=== PATIENT | female | born 1985 | race Caucasian/White ===

== ENCOUNTER 2016-05-25 18:13 | Emergency (ER) | payer MEDICAID ==
[2016-05-25] MEDS ORDERED: HYDROCODONE/ACETAMINOPHEN 5-325 MG TABLET PO ONE (18:52)
--- NOTE | 2016-05-25 18:52 | ER Document Report ---
ED Medical Screen (RME) - General Stated Complaint: TOOTH PAIN Time seen by provider: 18:48 Mode of Arrival: Ambulatory Information source: Patient TRAVEL OUTSIDE OF THE [place] IN LAST 30 DAYS: No - HPI Patient complains to provider of: DENTAL PAIN Onset: Other - 2-3 WEEKS, WORSE LAST 3 DAYS Onset/Duration: Gradual Quality of pain: Throbbing Severity: Moderate Pain Level: 4 Associated Symptoms: None Exacerbated by: Food Relieved by: Denies Similar symptoms previously: Yes Recently seen / treated by doctor: No - HAS APPT 1 1/2 WEEKS - Related Data Smoking: Cigarettes Frequency of alcohol use: Rare Drug Abuse: None Allergies/Adverse Reactions: paroxetine HCl [From Paxil] Allergy (Intermediate, Verified 02/22/16 09:16) sumatriptan [From Imitrex] Adverse Reaction (Unknown, Verified 02/22/16 09:16) sumatriptan succinate [From Imitrex] Adverse Reaction (Unknown, Verified 09:16) Past Medical History - Past Medical History Cardiac Medical History: Denies: Hx Coronary Artery Disease, Hx Heart Attack, Hx Hypertension Pulmonary Medical History: Reports: Hx Bronchitis Denies: Hx Asthma, Hx COPD, Hx Pneumonia Neurological Medical History: Reports: Hx Migraine. Denies: Hx Cerebrovascular Accident, Hx Seizures Renal/ Medical History: Reports: Hx Ovarian Cysts Musculoskeltal Medical History: Reports Hx Arthritis - hips and knees roro. Skin Medical History: Denies Hx MRSA Psychiatric Medical History: Reports: Hx Attention Deficit Hyperactivity Disorder, Hx Depression Traumatic Medical History: Reports: Hx Fractures Past Surgical History: Reports: Hx Bowel Surgery - hemmorhoids, Hx Gynecologic Surgery - Mirena IUD, Hx Hysterectomy - partial, Hx Oral Surgery - wisdom, Hx Tubal Ligation. Denies: Hx Pacemaker - Immunizations Immunizations up to date: Yes Hx Diphtheria, Pertussis, Tetanus Vaccination: Yes Physical Exam - Vital signs Vitals: Temp Pulse Resp BP Pulse Ox 98.1 F 101 H 16 122/78 99 05/25/16 18:23 05/25/16 18:23 05/25/16 18:23 05/25/16 18:23 05/25/16 18:23 Course - Vital Signs Vital signs: Temp Pulse Resp BP Pulse Ox 98.1 F 101 H 16 122/78 99 05/25/16 18:23 05/25/16 18:23 05/25/16 18:23 05/25/16 18:23 05/25/16 18:23
[2016-05-25] MEDS ORDERED: HYDROCODONE/ACETAMINOPHEN 5-325 MG 6 TAB/DSPK PO PRN (20:08)
[2016-05-25] MEDS ORDERED: PENICILLIN V POTASSIUM 500 MG TABLET PO ONE (20:08)
--- NOTE | 2016-05-25 20:14 | ER Document Report ---
HPI - HPI Patient complains to provider of: tooth pain Pain Level: 4 Context: Patient is a 30-year-old female that comes emergency department for chief complaint of tooth pain, worsening over the past several days, she states that she has made an appointment with the dentist but they cannot see her until next . Patient states pain radiates up towards her right ear. She denies throat pain, neck pain, fever. - CONSTITUTIONAL Constitutional: DENIES: Fever, Chills - EENT EENT: DENIES: Sore Throat, Ear Pain, Nasal Drainage-Clear, Nasal Drainage- Purulent, Congestion, Eye problems - NEURO Neurology: DENIES: Headache, Weakness, Vision blurred, Dizzinesss / Vertigo - CARDIOVASCULAR Cardiovascular: DENIES: Chest pain - RESPIRATORY Respiratory: DENIES: Trouble Breathing, Coughing - GASTROINTESTINAL Gastrointestinal: DENIES: Abdominal Pain, Nausea, Patient vomiting, Diarrhea, Constipation, Black / Bloody Stools - URINARY Urinary: DENIES: Dysuria, Urgency, Frequency - REPRODUCTIVE LMP: n/a Reproductive: DENIES: :, Postmenopausal, Abnormal bleeding / discharge - MUSCULOSKELETAL Musculoskeletal: DENIES: Extremity pain, Back Pain, Neck Pain, Swelling - DERM Skin Color: Normal Skin Problems: None - NURSING COMMENTS Comment: received pt to room 44. pt is alert and oriented. ambulatory with steady gait. states she has tooth pain to teeth on the top and bottom right jaw. states increase in pain over the p;ast 2-3 weeks. states she does have an appt with the dentis but not until 1.5 week. Past Medical History - General Information source: Patient - Social History Smoking Status: Current Every Day Smoker Cigarette use (# per day): No Chew tobacco use (# tins/day): No Frequency of alcohol use: None Drug Abuse: None Family History: Reviewed & Not Pertinent Patient has suicidal ideation: No Patient has homicidal ideation: No - Past Medical History Cardiac Medical History: Denies: Hx Coronary Artery Disease, Hx Heart Attack, Hx Hypertension Pulmonary Medical History: Reports: Hx Bronchitis Denies: Hx Asthma, Hx COPD, Hx Pneumonia Neurological Medical History: Reports: Hx Migraine. Denies: Hx Cerebrovascular Accident, Hx Seizures Renal/ Medical History: Reports: Hx Ovarian Cysts. Denies: Hx Peritoneal Dialysis Musculoskeltal Medical History: Reports Hx Arthritis - hips and knees roro. Skin Medical History: Denies Hx MRSA Psychiatric Medical History: Reports: Hx Attention Deficit Hyperactivity Disorder, Hx Depression Traumatic Medical History: Reports: Hx Fractures Past Surgical History: Reports: Hx Bowel Surgery - hemmorhoids, Hx Gynecologic Surgery - Mirena IUD, Hx Hysterectomy, Hx Oral Surgery - wisdom, Hx Tubal Ligation. Denies: Hx Pacemaker - Immunizations Immunizations up to date: Yes Hx Diphtheria, Pertussis, Tetanus Vaccination: Yes Vertical Provider Document - CONSTITUTIONAL General Appearance: Mild Distress - Patient holding her right jaw, Thin - INFECTION CONTROL TRAVEL OUTSIDE OF THE [place] IN LAST 30 DAYS: No - HEENT HEENT: Atraumatic, Normal ENT Exam, Normocephalic. negative: Pharyngeal Exudate , Pharyngeal Tenderness, Pharyngeal Erythema Mouth Diagram: 1 - Tenderness, very mild erythema to the gumline, questionable broken tooth in the posterior aspect, no abscess or other abnormalities noted - NECK Neck: Normal Inspection, Supple. negative: Lymphadenopathy-Left, Lymphadenopathy-Right - RESPIRATORY Respiratory: Breath Sounds Normal, No Respiratory Distress O2 Sat by Pulse Oximetry: 99 - CARDIOVASCULAR Cardiovascular: Regular Rate, Regular Rhythm - GI/ABDOMEN Gastrointestinal: Abdomen Soft, Abdomen Non-Tender - MUSCULOSKELETAL/EXTREMETIES Musculoskeletal/Extremeties: MAEW, FROM, Non-Tender - NEURO Level of Consciousness: Awake, Alert, Appropriate - DERM Integumentary: Warm, Dry, No Rash Course - Vital Signs Vital signs: Temp Pulse Resp BP Pulse Ox 98.1 F 101 H 16 122/78 99 05/25/16 18:23 05/25/16 18:23 05/25/16 18:23 05/25/16 18:23 05/25/16 18:23 Discharge - Discharge Clinical Impression: Pain, dental Condition: Stable Disposition: HOME, SELF-CARE Additional Instructions: Take medications as prescribed, follow up with the dentist for treatment. Return to emergency department for any concerning or worsening symptoms including swelling, difficulty swallowing, fever, etc. Prescriptions: Ibuprofen 800 mg PO Q8 #30 tablet Oxycodone HCl/Acetaminophen [Percocet 5-325 mg Tablet] 1 - 2 tab PO Q4H PRN #8 tablet PRN Reason: Penicillin V Potassium [Penicillin Vk 500 mg Tablet] 500 mg PO BID #20 tablet Referrals: COREY CRONIN MD, MD [Primary Care Provider] - Follow up as needed
[2016-05-25 20:49] VITALS: BP 110/73
== END 2016-05-25 20:36 | disposition home or self-care (01) ==
LOC: ER 18:13
DX: K08.89 Other specified disorders of teeth and supporting structures (principal); F17.200 Nicotine dependence, unspecified, uncomplicated
CPT/HCPCS: 99282; J3490

== ENCOUNTER 2016-05-28 09:31 | Emergency (ER) | payer MEDICAID ==
--- NOTE | 2016-05-28 10:47 | ER Document Report ---
HPI - HPI Patient complains to provider of: dental pain Onset: Last week Onset/Duration: Persistent Quality of pain: Sharp Pain Level: 4 Context: Patient complains of dental pain for the past week. Patient was here on 2016 and given pain medication as well as antibiotics. Patient is waiting for her appointment on 06/07/2016. Patient denies any fever or facial swelling. Associated Symptoms: Other - Dental pain. denies: Earache, Fever Exacerbated by: Denies Relieved by: Denies Similar symptoms previously: Yes Recently seen / treated by doctor: Yes - ROS ROS below otherwise negative: Yes Systems Reviewed and Negative: Yes All other systems reviewed and negative - CONSTITUTIONAL Constitutional: DENIES: Fever, Chills - EENT EENT: DENIES: Sore Throat Notes: Dental pain - RESPIRATORY Respiratory: DENIES: Trouble Breathing, Coughing - GASTROINTESTINAL Gastrointestinal: DENIES: Nausea, Patient vomiting - REPRODUCTIVE Reproductive: DENIES: : - MUSCULOSKELETAL Musculoskeletal: DENIES: Back Pain, Neck Pain - DERM Skin Color: Normal Skin Problems: None Past Medical History - General Information source: Patient - Social History Smoking Status: Current Every Day Smoker Chew tobacco use (# tins/day): No Frequency of alcohol use: None Drug Abuse: None Occupation: cleaning Family History: Reviewed & Not Pertinent Patient has suicidal ideation: No Patient has homicidal ideation: No - Past Medical History Cardiac Medical History: Denies: Hx Coronary Artery Disease, Hx Heart Attack, Hx Hypertension Pulmonary Medical History: Reports: Hx Bronchitis Denies: Hx Asthma, Hx COPD, Hx Pneumonia Neurological Medical History: Reports: Hx Migraine. Denies: Hx Cerebrovascular Accident, Hx Seizures Renal/ Medical History: Reports: Hx Ovarian Cysts. Denies: Hx Peritoneal Dialysis Musculoskeltal Medical History: Reports Hx Arthritis - hips and knees roro. Skin Medical History: Denies Hx MRSA Psychiatric Medical History: Reports: Hx Attention Deficit Hyperactivity Disorder, Hx Depression Traumatic Medical History: Reports: Hx Fractures Past Surgical History: Reports: Hx Bowel Surgery - hemmorhoids, Hx Gynecologic Surgery - Mirena IUD, Hx Hysterectomy, Hx Oral Surgery - wisdom, Hx Tubal Ligation. Denies: Hx Pacemaker - Immunizations Immunizations up to date: Yes Hx Diphtheria, Pertussis, Tetanus Vaccination: Yes Vertical Provider Document - CONSTITUTIONAL Agree With Documented VS: Yes Exam Limitations: No Limitations General Appearance: WD/WN, No Apparent Distress - INFECTION CONTROL TRAVEL OUTSIDE OF THE [place] IN LAST 30 DAYS: No - HEENT HEENT: Atraumatic, Normocephalic Mouth Diagram: 1 - Tenderness, no obvious decay, no gingival swelling, no trismus. - NECK Neck: Normal Inspection, Supple. negative: Lymphadenopathy-Left, Lymphadenopathy-Right - RESPIRATORY Respiratory: Breath Sounds Normal, No Respiratory Distress, Chest Non-Tender O2 Sat by Pulse Oximetry: 97 - CARDIOVASCULAR Cardiovascular: Regular Rate, Regular Rhythm, No Murmur - BACK Back: Normal Inspection - MUSCULOSKELETAL/EXTREMETIES Musculoskeletal/Extremeties: MAEW - NEURO Level of Consciousness: Awake, Alert, Appropriate Motor/Sensory: No Motor Deficit - DERM Integumentary: Warm, Dry, No Rash Course - Re-evaluation Re-evalutation: 05/28/16 Patient states that tramadol does not manage her pain symptoms and is requesting a refill of narcotic pain medication. Patient advised that emergency department does not refill narcotic medications and that she will need to see your her primary doctor or her dental provider for any additional pain medication. - Vital Signs Vital signs: Temp Pulse Resp BP Pulse Ox 98.3 F 16 L 98 H 118/68 97 05/28/16 09:36 05/28/16 09:36 05/28/16 09:36 05/28/16 09:36 05/28/16 09:36 Discharge - Discharge Clinical Impression: Pain, dental Condition: Stable Disposition: HOME, SELF-CARE Instructions: Toothache ([facility]), Ultram ([facility]) Additional Instructions: Return immediately for any new or worsening symptoms Followup with your primary care provider, call tomorrow to make a followup appointment Continue to take your antibiotics as previously prescribed Follow-up with your dental care provider as planned Prescriptions: Tramadol HCl [Ultram 50 mg Tablet] 50 mg PO ASDIR PRN #20 tablet PRN Reason: Referrals: COREY CRONIN MD, MD [Primary Care Provider] - Follow up as needed
[2016-05-28 11:08] VITALS: BP 114/68
== END 2016-05-28 10:55 | disposition home or self-care (01) ==
LOC: ER 09:31
DX: K08.89 Other specified disorders of teeth and supporting structures (principal); F17.210 Nicotine dependence, cigarettes, uncomplicated
CPT/HCPCS: 99282

== ENCOUNTER 2016-07-13 10:10 | Emergency (ER) | payer MEDICAID ==
[2016-07-13 10:14] VITALS: BP 117/77
--- NOTE | 2016-07-13 10:17 | ER Document Report ---
ED Medical Screen (RME) - General Stated Complaint: LEFT BREAST PAIN Notes: Patient reports left breast pain and swelling for about 3 weeks. Warm to touch last night. Patient reports drainage from left nipple. Patient states she has had similar symptoms in the past, but not as bad. I have greeted and performed a rapid initial assessment of this patient. A comprehensive ED assessment and evaluation of the patient, analysis of test results and completion of the medical decision making process will be conducted by additional ED providers. TRAVEL OUTSIDE OF THE [place] IN LAST 30 DAYS: No - Related Data Allergies/Adverse Reactions: paroxetine HCl [From Paxil] Allergy (Intermediate, Verified 05/28/16 09:36) sumatriptan [From Imitrex] Adverse Reaction (Unknown, Verified 05/28/16 09:36) sumatriptan succinate [From Imitrex] Adverse Reaction (Unknown, Verified 09:36) Past Medical History - Past Medical History Cardiac Medical History: Denies: Hx Coronary Artery Disease, Hx Heart Attack, Hx Hypertension Pulmonary Medical History: Reports: Hx Bronchitis Denies: Hx Asthma, Hx COPD, Hx Pneumonia Neurological Medical History: Reports: Hx Migraine. Denies: Hx Cerebrovascular Accident, Hx Seizures Renal/ Medical History: Reports: Hx Ovarian Cysts. Denies: Hx Peritoneal Dialysis Musculoskeltal Medical History: Reports Hx Arthritis - hips and knees roro. Skin Medical History: Denies Hx MRSA Psychiatric Medical History: Reports: Hx Attention Deficit Hyperactivity Disorder, Hx Depression Traumatic Medical History: Reports: Hx Fractures Past Surgical History: Reports: Hx Bowel Surgery - hemmorhoids, Hx Gynecologic Surgery - Mirena IUD, Hx Hysterectomy, Hx Oral Surgery - wisdom, Hx Tubal Ligation. Denies: Hx Pacemaker - Immunizations Immunizations up to date: Yes Hx Diphtheria, Pertussis, Tetanus Vaccination: Yes Physical Exam - Vital signs Vitals: Temp Pulse Resp BP Pulse Ox 98.5 F 73 16 117/77 99 07/13/16 10:13 07/13/16 10:13 07/13/16 10:13 07/13/16 10:13 07/13/16 10:13 - General General appearance: Appears well, Alert In distress: None Course - Vital Signs Vital signs: Temp Pulse Resp BP Pulse Ox 98.5 F 73 16 117/77 99 07/13/16 10:13 07/13/16 10:13 07/13/16 10:13 07/13/16 10:13 07/13/16 10:13
== END 2016-07-13 10:30 | disposition left against medical advice (07) ==
LOC: ER 10:10
DX: Z53.9 Procedure and treatment not carried out, unspecified reason (principal); N64.4 Mastodynia
CPT/HCPCS: 99281; 99283

== ENCOUNTER 2016-07-13 11:01 | Emergency (ER) | payer MEDICAID ==
--- NOTE | 2016-07-13 11:04 | ER Document Report ---
ED Medical Screen (RME) - General Stated Complaint: breast pain Notes: Patient reports left breast pain and swelling for about 3 weeks. Warm to touch last night. Patient reports drainage from left nipple. Patient states she has had similar symptoms in the past, but not as bad. I have greeted and performed a rapid initial assessment of this patient. A comprehensive ED assessment and evaluation of the patient, analysis of test results and completion of the medical decision making process will be conducted by additional ED providers. TRAVEL OUTSIDE OF THE [place] IN LAST 30 DAYS: No - Related Data Allergies/Adverse Reactions: paroxetine HCl [From Paxil] Allergy (Intermediate, Verified 07/13/16 11:06) sumatriptan [From Imitrex] Adverse Reaction (Unknown, Verified 07/13/16 11:06) sumatriptan succinate [From Imitrex] Adverse Reaction (Unknown, Verified 11:06) Past Medical History - Past Medical History Cardiac Medical History: Denies: Hx Coronary Artery Disease, Hx Heart Attack, Hx Hypertension Pulmonary Medical History: Reports: Hx Bronchitis Denies: Hx Asthma, Hx COPD, Hx Pneumonia Neurological Medical History: Reports: Hx Migraine. Denies: Hx Cerebrovascular Accident, Hx Seizures Renal/ Medical History: Reports: Hx Ovarian Cysts. Denies: Hx Peritoneal Dialysis Musculoskeltal Medical History: Reports Hx Arthritis - hips and knees roro. Skin Medical History: Denies Hx MRSA Psychiatric Medical History: Reports: Hx Attention Deficit Hyperactivity Disorder, Hx Depression Traumatic Medical History: Reports: Hx Fractures Past Surgical History: Reports: Hx Bowel Surgery - hemmorhoids, Hx Gynecologic Surgery - Mirena IUD, Hx Hysterectomy, Hx Oral Surgery - wisdom, Hx Tubal Ligation. Denies: Hx Pacemaker - Immunizations Immunizations up to date: Yes Hx Diphtheria, Pertussis, Tetanus Vaccination: Yes Physical Exam - Vital signs Vitals: Temp Pulse Resp BP Pulse Ox 98.3 F 74 14 124/85 99 07/13/16 11:04 07/13/16 11:04 07/13/16 11:04 07/13/16 11:04 07/13/16 11:04 - General General appearance: Appears well, Alert In distress: None Course - Vital Signs Vital signs: Temp Pulse Resp BP Pulse Ox 98.3 F 74 14 124/85 99 07/13/16 11:04 07/13/16 11:04 07/13/16 11:04 07/13/16 11:04 07/13/16 11:04
--- NOTE | 2016-07-13 12:28 | ER Document Report ---
HPI - HPI Patient complains to provider of: left breat pain and swelling Onset: Other - 3 weeks Quality of pain: Throbbing Pain Level: 3 Context: 30 yo non breatfeeding female c/o recurrent swelling to left lateral quadrant for 3 weeks. Similar in past and was told it was fibrocystic disease. No US done or mmmogram. No nipple manipulation, no discharge. No fever or chills. Associated Symptoms: None Exacerbated by: Denies Relieved by: Denies Similar symptoms previously: Yes Recently seen / treated by doctor: No - ROS ROS below otherwise negative: Yes Systems Reviewed and Negative: Yes All other systems reviewed and negative - REPRODUCTIVE Reproductive: DENIES: : - DERM Skin Color: Normal Past Medical History - General Information source: Patient - Social History Smoking Status: Current Every Day Smoker Chew tobacco use (# tins/day): No Frequency of alcohol use: None Drug Abuse: None Lives with: Family Family History: Reviewed & Not Pertinent Patient has suicidal ideation: No Patient has homicidal ideation: No Pulmonary Medical History: Reports: Hx Bronchitis Neurological Medical History: Reports: Hx Migraine Renal/ Medical History: Reports: Hx Ovarian Cysts Musculoskeltal Medical History: Reports Hx Arthritis - hips and knees roro. Psychiatric Medical History: Reports: Hx Attention Deficit Hyperactivity Disorder, Hx Depression Traumatic Medical History: Reports: Hx Fractures Past Surgical History: Reports: Hx Bowel Surgery - hemmorhoids, Hx Gynecologic Surgery - Mirena IUD, Hx Hysterectomy, Hx Oral Surgery - wisdom, Hx Tubal Ligation. Denies: Hx Pacemaker - Immunizations Immunizations up to date: Yes Hx Diphtheria, Pertussis, Tetanus Vaccination: Yes Vertical Provider Document - CONSTITUTIONAL Agree With Documented VS: Yes Exam Limitations: No Limitations General Appearance: No Apparent Distress - INFECTION CONTROL TRAVEL OUTSIDE OF THE [place] IN LAST 30 DAYS: No - HEENT HEENT: Normal ENT Exam - NECK Neck: Supple - RESPIRATORY Respiratory: Breath Sounds Normal, No Respiratory Distress O2 Sat by Pulse Oximetry: 99 Notes: left lateral and upper outer breast tissue more dense than the left. No discrete mass, not red or warm. No adenopathy. - CARDIOVASCULAR Cardiovascular: Regular Rate, Regular Rhythm - MUSCULOSKELETAL/EXTREMETIES Musculoskeletal/Extremeties: MAEW, FROM - NEURO Level of Consciousness: Awake, Alert - DERM Integumentary: Warm, Dry, No Rash Course - Vital Signs Vital signs: Temp Pulse Resp BP Pulse Ox 98.3 F 74 14 124/85 99 07/13/16 11:04 07/13/16 11:04 07/13/16 11:04 07/13/16 11:04 07/13/16 11:04 Discharge - Discharge Clinical Impression: left mastodynia Condition: Good Disposition: HOME, SELF-CARE Instructions: Breast Self-Examination ([facility]), Breast Lumps ([facility]) Additional Instructions: Get the outpatient ultrasound and mammogram See Mayra Basilio your provider for follow-up Please complete the patient satisfaction survey if you get one, and return it.. If you do not receive a survey, then you can go to the [facility] website, [email or web address] and place your comments about your very good care. Thank you very much. It was a pleasure being your medical provider today. Forms: Follow-Up Radiology Testing Referrals: COREY CRONIN MD [Primary Care Provider] - Follow up in 3-5 days
[2016-07-13 13:04] VITALS: BP 121/82
== END 2016-07-13 13:04 | disposition home or self-care (01) ==
LOC: ER 11:01
DX: N64.4 Mastodynia (principal); N63 Unspecified lump in breast; F17.200 Nicotine dependence, unspecified, uncomplicated
CPT/HCPCS: 99283

== ENCOUNTER → 2016-07-26 | Outpatient (CLI) | payer MEDICAID | LOC: WI 10:20 | PROVIDERS: ATTEND Nurse Practitioner Family | DX: N64.4 Mastodynia (principal) | CPT/HCPCS: 76642; G0204; 77066 ==

== ENCOUNTER 2016-08-06 17:21 | Emergency (ER) | payer MEDICAID ==
[2016-08-06 17:26] VITALS: BP 138/73
[2016-08-06] MEDS ORDERED: HYDROCODONE/ACETAMINOPHEN 5-325 MG TABLET PO ONE (18:12)
--- NOTE | 2016-08-06 18:13 | ER Document Report ---
HPI - HPI Patient complains to provider of: dry socket Pain Level: 5 Context: patient had tooth #2 pulled three days ago, has received 10 vicodin from her dentist and presents here today with dry socket and looking for pain relief. She states she's been smoking since she had her teeth pulled. The fever, chills , foul drainage or odor. - REPRODUCTIVE Reproductive: DENIES: : - DERM Skin Color: Normal Past Medical History - Social History Smoking Status: Current Every Day Smoker Family History: Reviewed & Not Pertinent Patient has suicidal ideation: No Patient has homicidal ideation: No - Past Medical History Cardiac Medical History: Denies: Hx Coronary Artery Disease, Hx Heart Attack, Hx Hypertension Pulmonary Medical History: Reports: Hx Bronchitis Denies: Hx Asthma, Hx COPD, Hx Pneumonia Neurological Medical History: Reports: Hx Migraine. Denies: Hx Cerebrovascular Accident, Hx Seizures Renal/ Medical History: Reports: Hx Ovarian Cysts. Denies: Hx Peritoneal Dialysis Musculoskeltal Medical History: Reports Hx Arthritis - hips and knees roro. Skin Medical History: Denies Hx MRSA Psychiatric Medical History: Reports: Hx Attention Deficit Hyperactivity Disorder, Hx Depression Traumatic Medical History: Reports: Hx Fractures Past Surgical History: Reports: Hx Bowel Surgery - hemmorhoids, Hx Gynecologic Surgery - Mirena IUD, Hx Hysterectomy, Hx Oral Surgery - wisdom, Hx Tubal Ligation. Denies: Hx Pacemaker - Immunizations Immunizations up to date: Yes Hx Diphtheria, Pertussis, Tetanus Vaccination: Yes Vertical Provider Document - CONSTITUTIONAL Agree With Documented VS: Yes Exam Limitations: No Limitations General Appearance: WD/WN, No Apparent Distress - INFECTION CONTROL TRAVEL OUTSIDE OF THE [place] IN LAST 30 DAYS: No - HEENT HEENT: Atraumatic, Normocephalic, PERRLA Mouth Diagram: 1 - Dry socket. Notes: Uvula midline. Airway patent. No evidence of tonsillar enlargement, peritonsillar abscess, retropharyngeal abscess. - NECK Neck: Normal Inspection, Other - No evidence of Harry angina - RESPIRATORY Respiratory: Breath Sounds Normal, No Respiratory Distress, Chest Non-Tender. negative: Rales, Rhonchi, Wheezing O2 Sat by Pulse Oximetry: 97 - CARDIOVASCULAR Cardiovascular: Regular Rate, Regular Rhythm, No Murmur Course - Re-evaluation Re-evalutation: 08/06/16 19:11 Discussed with patient management of dry socket and can follow-up with dentist. - Vital Signs Vital signs: Temp Pulse Resp BP Pulse Ox 98.3 F 85 20 138/73 H 97 08/06/16 17:24 08/06/16 17:24 08/06/16 17:24 08/06/16 17:24 08/06/16 17:24 Discharge - Discharge Clinical Impression: Dry socket Condition: Good Disposition: HOME, SELF-CARE Additional Instructions: Follow up with your dentist on Tuesday or Tuesday Stop smoking You can buy [id number] [employer]abase. Place this on a cotton ball and pack the socket. You can also use BC powder for your pain Referrals: COREY CRONIN MD [Primary Care Provider] - Follow up as needed
== END 2016-08-06 18:37 | disposition home or self-care (01) ==
LOC: ER 17:21
DX: M27.3 Alveolitis of jaws (principal); F17.200 Nicotine dependence, unspecified, uncomplicated; Z97.5 Presence of (intrauterine) contraceptive device; Z90.710 Acquired absence of both cervix and uterus
CPT/HCPCS: 99282

== ENCOUNTER 2016-08-09 06:17 | Emergency (ER) | payer MEDICAID ==
[2016-08-09 06:27] VITALS: BP 133/90
[2016-08-09] MEDS ORDERED: PENICILLIN V POTASSIUM 500 MG TABLET PO ONE (06:47)
[2016-08-09] MEDS ORDERED: TRAMADOL HCL 50 MG TABLET PO ONE (06:47)
--- NOTE | 2016-08-09 06:53 | ER Document Report ---
ED Oral Problem - General Chief Complaint: Mouth Problem Stated Complaint: FACE PAIN AND SWELLING Mode of Arrival: Ambulatory Information source: Patient TRAVEL OUTSIDE OF THE [place] IN LAST 30 DAYS: No - HPI Patient complains to provider of: Swelling of face Notes: Patient arrives with complaints of right upper dental pain. She had a right upper first molar removed approximately one week ago. She was seen here a few days ago with dry socket pain after smoking. She do not appear to have any infection at that time. She arrives today because she complains of some swelling to the right cheek area and she is currently concerned she has an infection. She denies any fevers. She denies any difficulty breathing or swelling. No nausea, vomiting, diarrhea. No rash. She denies any numbness tingling or weakness. She has no other complaints at this time. In reviewing her chart, the patient has been seen in [facility] department quite often for dental pain. - Related Data Allergies/Adverse Reactions: paroxetine HCl [From Paxil] Allergy (Intermediate, Verified 08/09/16 06:21) sumatriptan [From Imitrex] Adverse Reaction (Unknown, Verified 08/09/16 06:21) sumatriptan succinate [From Imitrex] Adverse Reaction (Unknown, Verified 06:21) Past Medical History - Social History Smoking Status: Current Every Day Smoker Chew tobacco use (# tins/day): No Frequency of alcohol use: None Drug Abuse: None Family History: Reviewed & Not Pertinent - Past Medical History Cardiac Medical History: Denies: Hx Coronary Artery Disease, Hx Heart Attack, Hx Hypertension Pulmonary Medical History: Reports: Hx Bronchitis Denies: Hx Asthma, Hx COPD, Hx Pneumonia Neurological Medical History: Reports: Hx Migraine. Denies: Hx Cerebrovascular Accident, Hx Seizures Renal/ Medical History: Reports: Hx Ovarian Cysts. Denies: Hx Peritoneal Dialysis Musculoskeltal Medical History: Reports Hx Arthritis - bilateral hips and knees Skin Medical History: Denies Hx MRSA Psychiatric Medical History: Reports: Hx Attention Deficit Hyperactivity Disorder, Hx Depression Traumatic Medical History: Reports: Hx Fractures Past Surgical History: Reports: Hx Bowel Surgery - hemmorhoids, Hx Gynecologic Surgery - Mirena IUD, Hx Hysterectomy, Hx Oral Surgery - wisdom, Hx Tubal Ligation. Denies: Hx Pacemaker - Immunizations Immunizations up to date: Yes Hx Diphtheria, Pertussis, Tetanus Vaccination: Yes Review of Systems - Review of Systems -: Yes All other systems reviewed and negative Physical Exam - Vital signs Vitals: Temp Pulse Resp BP Pulse Ox 98.1 F 82 20 133/90 H 97 08/09/16 06:21 08/09/16 06:21 08/09/16 06:21 08/09/16 06:21 08/09/16 06:21 - Notes Notes: GENERAL: alert, cooperative, nontoxic, no distress. HEAD: normocephalic, atraumatic EYES: conjunctiva pink without discharge, no external redness or swelling. EARS: no external swelling, no external redness NOSE: atraumatic, no external swelling MOUTH/THROAT: mucous membranes moist and pink. Patient's noted to have a open area to the gum and tooth #3, her right upper first molar. There is no gum swelling identified. There is no drainage or abscess noted. She does have some very minimal puffiness to the right cheek area. There is no significant edema noted. No redness. She has no sign of Harry angina. No trismus or drooling. NECK: soft, supple, full range of motion, no meningismus. CHEST: no distress, lungs clear and equal throughout. No wheezing, rales, rhonchi. CARDIAC: regular rate and rhythm, no murmur, normal capillary refill, normal pulses. BACK: full range of motion, no CVA tenderness. EXTREMITIES: full range of motion of all extremities. No redness, no swelling. NEURO: alert and oriented 3, no focal deficits, full range of motion of all extremities. PYSCH: appropriate mood, affect. Patient is cooperative. SKIN: pink, warm, dry, no rash. Course - Re-evaluation Re-evalutation: 08/09/16 06:51 Patient is nontoxic. Stable vitals. The patient had these recent dental extraction to the right upper first molar. She was seen a few days ago for a dry socket. She returns today for some mild swelling to the right cheek. I will place her on antibiotics in case she has an early infection in this area. She'll be given a dose of pain medication here in the emergency department. She 'll be discharged home with pen OSCAR and Voltaren. She is instructed to follow- up with her dentist at the next available appointment. She states that the dentist is not open today, instructed she needs to follow up with them tomorrow. She is nontoxic-appearing with no distress. She is afebrile. She' ll be discharged home. The patient is noted to have elevated blood pressure during today's emergency department visit. The patient was informed of this finding. The patient was instructed that this may be related to pre-hypertension and requires further evaluation with a primary care provider. The patient has no hypertensive symptoms at this time. The patient's emergency department workup and current diagnosis were explained to the patient and or family. Follow-up instructions were provided. Medications if prescribed were discussed. Instructions for when to return to the emergency department including specific worrisome symptoms were discussed with the patient and/or family. - Vital Signs Vital signs: Temp Pulse Resp BP Pulse Ox 98.1 F 82 20 133/90 H 97 08/09/16 06:21 08/09/16 06:21 08/09/16 06:21 08/09/16 06:21 08/09/16 06:21 Discharge - Discharge Clinical Impression: Pain, dental Condition: Stable Disposition: HOME, SELF-CARE Instructions: Penicillin V K ([facility]), Toothache ([facility]) Additional Instructions: The medication as prescribed. Stop smoking. See your dentist at the next available appointment. Follow-up sooner for increased pain, increased swelling , difficult to breathe swelling, or any further concerns. Your blood pressure was elevated during today's visit. Have this rechecked with your doctor. Prescriptions: Diclofenac Sodium [Voltaren] 75 mg PO BID #20 tablet. Penicillin V Potassium [Penicillin Vk 500 mg Tablet] 500 mg PO QID #28 tablet Forms: Elevated Blood Pressure
== END 2016-08-09 07:15 | disposition home or self-care (01) ==
LOC: ER 06:17
DX: K08.9 Disorder of teeth and supporting structures, unspecified (principal); R22.0 Localized swelling, mass and lump, head; F17.200 Nicotine dependence, unspecified, uncomplicated; Z97.5 Presence of (intrauterine) contraceptive device
CPT/HCPCS: 99282; J3490

== ENCOUNTER 2017-09-05 16:58 | Emergency (ER) | payer MEDICAID ==
[2017-09-05] MEDS ORDERED: ONDANSETRON HCL INJ/PF 4 MG/2 ML SDV IV ONE (17:57)
[2017-09-05] MEDS ORDERED: FENTANYL CITRATE INJ/PF 100 MCG/2 ML AMPUL IV ONE (17:57)
--- NOTE | 2017-09-05 17:59 | ER Document Report ---
ED Medical Screen (RME) - General Chief Complaint: Flank Pain Stated Complaint: FLANK PAIN Time Seen by Provider: 09/05/17 17:54 Notes: RAPID MEDICAL EVALUATION DISCLOSURE I have seen this patient as part of a Rapid Medical Evaluation and, if applicable, placed any initially appropriate orders. The patient will be seen and fully evaluated, including a full history and physical exam, by a provider ( in Main ED or Fast Track) when a room becomes available. 31-year-old female PMH hysterectomy here with complaints of right flank pain that radiates around to the abdomen and down to the groin along with hematuria and nausea that started yesterday. She has not tried taking anything for the pain. She does not have any dysuria or fevers but does have chills and sweats as of last night. No prior history of kidney stones. Patient makes it a point that she does not have any vaginal bleeding because she does not have a uterus anymore. EXAM CTAB RRR Right CVA tenderness Right flank TTP Mild RUQ TTP, no Nichols sign Minimal RLQ TTP TRAVEL OUTSIDE OF THE [place] IN LAST 30 DAYS: No - Related Data Allergies/Adverse Reactions: paroxetine HCl [From Paxil] Allergy (Intermediate, Verified 08/09/16 06:21) sumatriptan [From Imitrex] Adverse Reaction (Unknown, Verified 08/09/16 06:21) sumatriptan succinate [From Imitrex] Adverse Reaction (Unknown, Verified 06:21) Past Medical History - Social History Frequency of alcohol use: Social Drug Abuse: None - Past Medical History Cardiac Medical History: Denies: Hx Coronary Artery Disease, Hx Heart Attack, Hx Hypertension Pulmonary Medical History: Reports: Hx Bronchitis Denies: Hx Asthma, Hx COPD, Hx Pneumonia Neurological Medical History: Reports: Hx Migraine. Denies: Hx Cerebrovascular Accident, Hx Seizures Renal/ Medical History: Reports: Hx Ovarian Cysts. Denies: Hx Peritoneal Dialysis Musculoskeltal Medical History: Reports Hx Arthritis - bilateral hips and knees Skin Medical History: Denies Hx MRSA Psychiatric Medical History: Reports: Hx Attention Deficit Hyperactivity Disorder, Hx Depression Traumatic Medical History: Reports: Hx Fractures Past Surgical History: Reports: Hx Bowel Surgery - hemmorhoids, Hx Gynecologic Surgery - Mirena IUD, Hx Hysterectomy, Hx Oral Surgery - wisdom, Hx Tubal Ligation. Denies: Hx Pacemaker - Immunizations Immunizations up to date: Yes Hx Diphtheria, Pertussis, Tetanus Vaccination: Yes Physical Exam - Vital signs Vitals: Temp Pulse Resp BP Pulse Ox 99.0 F 80 18 115/71 98 09/05/17 17:35 09/05/17 17:35 09/05/17 17:35 09/05/17 17:35 09/05/17 17:35 Course - Vital Signs Vital signs: Temp Pulse Resp BP Pulse Ox 99.0 F 80 18 115/71 98 09/05/17 17:35 09/05/17 17:35 09/05/17 17:35 09/05/17 17:35 09/05/17 17:35
[2017-09-05 18:54] LABS: ABSOLUTE BASOPHILS # (AUTO) 0.1 10^3/uL (0.0-0.2); ABSOLUTE EOSINOPHILS # (AUTO) 0.1 10^3/uL (0.0-0.6); ABSOLUTE LYMPHOCYTES (AUTO) 2.4 10^3/uL (0.5-4.7); ABSOLUTE MONOCYTES (AUTO) 0.6 10^3/uL (0.1-1.4); ABSOLUTE NEUT (AUTO) 3.6 10^3/uL (1.7-8.2); EOSINOPHILS % (AUTO) 1.7 % (0-6); HEMATOCRIT 41.3 % (36.0-47.0); HEMOGLOBIN 13.8 g/dL (12.0-15.5); LYMPHOCYTES % (AUTO) 35.6 % (13-45); MEAN CORPUSCULAR HGB CONC 33.4 g/dL (32.0-36.0); MEAN CORPUSCULAR VOLUME 96 fl (80-97); MONOCYTES % (AUTO) 8.5 % (3-13); PLATELET COUNT 197 10^3/uL (150-450); RED BLOOD COUNT 4.32 10^6/uL (3.72-5.28); RED CELL DISTRIBUTION WIDTH 14.1 % (11.5-14.0); SEGMENTED NEUTROPHILS % (AUTO) 53.2 % (42-78); TOTAL CELLS COUNTED % (AUTO) 100 %; WHITE BLOOD COUNT 6.8 10^3/uL (4.0-10.5)
[2017-09-05 19:04] LABS: APPEARANCE,URINE CLEAR; BILIRUBIN,URINE NEGATIVE (NEGATIVE); COLOR,URINE YELLOW; GLUCOSE, URINE NEGATIVE (NEGATIVE); KETONES,URINE NEGATIVE (NEGATIVE); LEUKOCYTE ESTERASE,URINE NEGATIVE (NEGATIVE); NITRITE,URINE NEGATIVE (NEGATIVE); PROTEIN,URINE NEGATIVE (NEGATIVE); URINE SPECIFIC GRAVITY 1.024; UROBILINOGEN,URINE NEGATIVE mg/dL (<2.0)
[2017-09-05 19:15] LABS: ALANINE AMINOTRANSFERASE 19 U/L (9-52); ALKALINE PHOSPHATASE 54 U/L (38-126); ANION GAP 11 (5-19); ASPARTATE AMINO TRANSFERASE 22 U/L (14-36); BILIRUBIN,DIRECT 0.3 mg/dL (0.0-0.4); BILIRUBIN,TOTAL 0.3 mg/dL (0.2-1.3); BLOOD UREA NITROGEN 23 mg/dL (7-20); CALCIUM 10.5 mg/dL (8.4-10.2); CARBON DIOXIDE 32 mmol/L (22-30); CHLORIDE 102 mmol/L (98-107); GLUCOSE 80 mg/dL (75-110); LIPASE 74.9 U/L (23-300); POTASSIUM 3.9 mmol/L (3.6-5.0); SODIUM 145.4 mmol/L (137-145); TOTAL PROTEIN 8.3 g/dL (6.3-8.2)
--- NOTE | 2017-09-05 20:49 | RADIOLOGY REPORT (SQ) ---
EXAM DESCRIPTION: CT LTD RENAL STONE PROTOCOL ON COMPLETED DATE/TIME: 09/05/2017 8:28 pm REASON FOR STUDY: R flank pain hematuria COMPARISON: CT renal 06/13/2011 TECHNIQUE: CT scan of the abdomen and pelvis performed without intravenous or oral contrast. Images reviewed with lung, soft tissue, and bone windows. Reconstructed coronal and sagittal MPR images revi ewed. All images stored on PACS. All CT scanners at this facility use dose modulation, iterative reconstruction, and/or weight based d osing when appropriate to reduce radiation dose to as low as reasonably achievable (ALARA). [facility]: Dose Right [facility]: CareDose [facility]: Dose Right [facility]: Teradose 4D [facility]: [employer] RADIATION DOSE: mGy. LIMITATIONS: None. FINDINGS: LOWER CHEST: No consolidation or pleural effusion. NON-CONTRASTED LIVER, SPLEEN, ADRENALS: Evaluation limited by lack of IV contrast. No identified sign ificant masses. PANCREAS: No peripancreatic inflammatory changes. GALLBLADDER: No identified stones by CT criteria. No inflammatory changes to suggest cholecystitis. 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 There is m ild perinephric stranding. No significant calcifications. No hydronephrosis or hydroureter. LEFT KIDNEY AND URETER: There is mild perinephric stranding. No significant calcifications. No hy dronephrosis or hydroureter. AORTA AND RETROPERITONEUM: No abdominal aortic aneurysm. No retroperitoneal masses or adenopathy. BOWEL AND PERITONEAL CAVITY: No dilated bowel loops or inflammatory changes. No free fluid. APPENDIX: Not visualized. PELVIS, BLADDER, AND ABDOMINAL WALL:No abnormal masses. Trace free fluid. Bladder decompressed. BONES: No significant findings. IMPRESSION: 1. No urinary tract calculi or hydronephrosis. 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 Mild bilateral perinephric stranding, nonspecific, please correlate with laborato ry values/urinalysis to exclude acute infection/ inflammation such as pyelonephritis. 2. Trace free pelvic fluid, may be physiologic for the patient's age. COMMENT: Quality ID # [id number]: Final reports with documentation of one or more dose reduction techniques (e.g., Automated exposure control, adjustment of the mA and/or kV according to patient size, use of iterative reconstruction technique) TECHNICAL DOCUMENTATION: JOB ID: [id number] 2011 [employer]- All Rights Reserved Reading location - IP/workstation name: [email or web address]
[2017-09-05] MEDS ORDERED: KETOROLAC TROMETHAMINE INJ/PF 30 MG/1 ML SDV IV ONE (21:37)
[2017-09-05] MEDS ORDERED: CEPHALEXIN 500 MG CAPSULE PO ONE (21:41)
--- NOTE | 2017-09-05 21:44 | ER Document Report ---
ED General - General Chief Complaint: Flank Pain Stated Complaint: FLANK PAIN Time Seen by Provider: 09/05/17 17:54 Notes: Patient is a 31-year-old female without chronic medical problems who presents with 2 days of right flank and right lower abdominal pain. She states that the pain started gradually and has gotten progressively worse since onset. She describes as a dull, throbbing, aching pain to the affected areas. Nothing improves or worsens this pain. She denies any history of similar symptoms in the past. She notes that she became concerned today when she urinated and she noticed that she was having bleeding. She states that she is certain this cannot be vaginal bleeding as she is status post hysterectomy. She has not seen her primary care doctor regarding today's concerns. She denies any associated fever or constitutional symptoms. TRAVEL OUTSIDE OF THE [place] IN LAST 30 DAYS: No - Related Data Allergies/Adverse Reactions: paroxetine HCl [From Paxil] Allergy (Intermediate, Verified 08/09/16 06:21) sumatriptan [From Imitrex] Adverse Reaction (Unknown, Verified 08/09/16 06:21) sumatriptan succinate [From Imitrex] Adverse Reaction (Unknown, Verified 06:21) Past Medical History - General Information source: Patient - Social History Smoking Status: Current Every Day Smoker Frequency of alcohol use: Social Drug Abuse: None Lives with: Spouse/Significant other Family History: Reviewed & Not Pertinent Patient has suicidal ideation: No Patient has homicidal ideation: No - Past Medical History Cardiac Medical History: Denies: Hx Coronary Artery Disease, Hx Heart Attack, Hx Hypertension Pulmonary Medical History: Reports: Hx Bronchitis Denies: Hx Asthma, Hx COPD, Hx Pneumonia Neurological Medical History: Reports: Hx Migraine. Denies: Hx Cerebrovascular Accident, Hx Seizures Renal/ Medical History: Reports: Hx Ovarian Cysts. Denies: Hx Peritoneal Dialysis Musculoskeltal Medical History: Reports Hx Arthritis - bilateral hips and knees Skin Medical History: Denies Hx MRSA Psychiatric Medical History: Reports: Hx Attention Deficit Hyperactivity Disorder, Hx Depression Traumatic Medical History: Reports: Hx Fractures Past Surgical History: Reports: Hx Bowel Surgery - hemmorhoids, Hx Gynecologic Surgery - Mirena IUD, Hx Hysterectomy, Hx Oral Surgery - wisdom, Hx Tubal Ligation. Denies: Hx Pacemaker - Immunizations Immunizations up to date: Yes Hx Diphtheria, Pertussis, Tetanus Vaccination: Yes Review of Systems - Review of Systems Notes: Constitutional: Negative for fever. HENT: Negative for sore throat. Eyes: Negative for visual changes. Cardiovascular: Negative for chest pain. Respiratory: Negative for shortness of breath. Gastrointestinal: Positive for abdominal and flank pain Genitourinary: Positive for dysuria and hematuria Musculoskeletal: Negative for back pain. Skin: Negative for rash. Neurological: Negative for headaches, weakness or numbness. 10 point ROS negative except as marked above and in HPI. Physical Exam - Vital signs Vitals: Temp Pulse Resp BP Pulse Ox 99.0 F 80 18 115/71 98 09/05/17 17:35 09/05/17 17:35 09/05/17 17:35 09/05/17 17:35 09/05/17 17:35 Interpretation: Normal Notes: PHYSICAL EXAMINATION: GENERAL: Well-appearing, well-nourished and in no acute distress. HEAD: Atraumatic, normocephalic. EYES: Pupils equal round and reactive to light, extraocular movements intact, sclera anicteric, conjunctiva are normal. ENT: nares patent, oropharynx clear without exudates. Moist mucous membranes. NECK: Normal range of motion, supple without lymphadenopathy LUNGS: Breath sounds clear to auscultation bilaterally and equal. No wheezes rales or rhonchi. HEART: Regular rate and rhythm without murmurs ABDOMEN: Soft, mild right lower abdominal tenderness as well as right CVA tenderness but no other localized areas of tenderness, normoactive bowel sounds. No guarding, no rebound. No masses appreciated. EXTREMITIES: Normal range of motion, no pitting or edema. No cyanosis. NEUROLOGICAL: No focal neurological deficits. Moves all extremities spontaneously and on command. PSYCH: Normal mood, normal affect. SKIN: Warm, Dry, normal turgor, no rashes or lesions noted. Course - Re-evaluation Re-evalutation: 09/05/17 21:39 Patient presents with 2 days of right-sided flank and lower abdominal pain. On examination she does have some mild localized tenderness the right lower quadrant as well as the right flank. CT scan of the abdomen pelvis without contrast does not show any evidence of acute nephrolithiasis but does show that she has an ectopic kidney in the right pelvis which would account for localization of her pain to this area. There is notable inflammation to both kidneys although surprisingly the urinalysis does not demonstrate any infection although there is trace bacteria. A culture has been sent. Patient has no known history of an autoimmune condition or vasculitis that would account for a alternative explanation for the noted kidney inflammation and associated pain with hematuria. I discussed with the patient that we will attempt a course of antibiotics and see if this improves her symptoms but have emphasized that right now her urinalysis is not consistent with an acute urinary tract infection. I have emphasized that she is not clinically improving within the next 48-72 hours she will need to follow-up with her primary care doctor for evaluation of a possible autoimmune or alternative source of her kidney inflammation and pain. At this time will discharge with return precautions and follow-up recommendations. Verbal discharge instructions given a the bedside and opportunity for questions given. Medication warnings reviewed. Patient is in agreement with this plan and has verbalized understanding of return precautions and the need for primary care follow-up in the next 24-72 hours. - Vital Signs Vital signs: Temp Pulse Resp BP Pulse Ox 97.8 F 60 17 131/84 H 100 09/05/17 21:57 09/05/17 21:57 09/05/17 21:57 09/05/17 21:57 09/05/17 21:57 - Laboratory Result Diagrams: 09/05/17 18:25 09/05/17 18:25 Laboratory results interpreted by me: 09/05/17 09/05/17 09/05/17 18:25 18:25 18:25 RDW 14.1 H Sodium 145.4 H Carbon Dioxide 32 H BUN 23 H Calcium 10.5 H Total Protein 8.3 H Urine Blood SMALL H - Diagnostic Test Radiology reviewed: Reports reviewed Discharge - Discharge Clinical Impression: Right flank pain, Kidney inflammation bilaterally Hematuria Qualifiers: Hematuria type: unspecified type Qualified Code(s): R31.9 - Hematuria, unspecified Condition: Good Disposition: HOME, SELF-CARE Additional Instructions: The exact cause of your symptoms is uncertain at this time although your kidneys are noted to be inflamed on the CT scan although at this time as we discussed your urine does not show an obvious infection or evidence of a kidney stone. However, given that there is not a reasonable alternative explanation at this time point he will be trialed on a course of antibiotics to see if this improves your symptoms. For your pain: Take ibuprofen 600 mg and acetaminophen 1000 mg every 6 hours together as needed for pain. If you are not having improvement of your symptoms within the next 48-72 hours, you will require reevaluation by your primary care doctor and possibly a kidney specialist to evaluate the cause of why your kidneys are inflamed. Considerations would include an autoimmune condition such as lupus or an inflammation of your blood vessels. Prescriptions: Cephalexin Monohydrate [Keflex 500 mg Capsule] 500 mg PO Q6H 7 Days capsule Referrals: SUYAPA VALENTE MD [Primary Care Provider] - Follow up in 3-5 days
[2017-09-05 22:00] VITALS: BP 131/84
== END 2017-09-05 21:57 | disposition home or self-care (01) ==
LOC: ER 16:58
DX: N05.9 Unspecified nephritic syndrome with unspecified morphologic changes (principal); Q63.2 Ectopic kidney; R31.0 Gross hematuria; R10.9 Unspecified abdominal pain; R10.31 Right lower quadrant pain; F17.200 Nicotine dependence, unspecified, uncomplicated; Z88.8 Allergy status to other drugs, medicaments and biological substances; Z87.42 Personal history of other diseases of the female genital tract
CPT/HCPCS: 99284; 96374; 96375; 36415; 87086; 83690; 85025; 87088; 80053; 81001; 87186; 76380; J3010; J1885; J2405

== ENCOUNTER 2017-09-06 16:55 | Emergency (ER) | payer MEDICAID ==
[2017-09-06] MEDS ORDERED: KETOROLAC TROMETHAMINE INJ/PF 30 MG/1 ML SDV IV ONE (17:18)
--- NOTE | 2017-09-06 17:22 | ER Document Report ---
ED Medical Screen (RME) - General Chief Complaint: Flank Pain Stated Complaint: URINARY PAIN Time Seen by Provider: 09/06/17 17:03 Notes: RAPID MEDICAL EVALUATION DISCLOSURE I have seen this patient as part of a Rapid Medical Evaluation and, if applicable, placed any initially appropriate orders. The patient will be seen and fully evaluated, including a full history and physical exam, by a provider ( in Main ED or Fast Track) when a room becomes available. 31-year-old female seen yesterday for right lower quadrant abdominal pain and right flank/back pain with CT findings of pyelonephritis and sent home on Keflex. She is back here today because the pain has worsened and she is now having difficulty urinating, only able to dribble a little bit at a time. She was not prescribed any pain medicines, she reports, and that she has been taking ibuprofen which has not been helping. EXAM Exquisitely tender right lower quadrant Moderate right CVA tenderness TRAVEL OUTSIDE OF THE [place] IN LAST 30 DAYS: No - Related Data Allergies/Adverse Reactions: paroxetine HCl [From Paxil] Allergy (Intermediate, Verified 09/06/17 17:01) sumatriptan [From Imitrex] Adverse Reaction (Unknown, Verified 09/06/17 17:01) sumatriptan succinate [From Imitrex] Adverse Reaction (Unknown, Verified 17:01) Past Medical History - Past Medical History Cardiac Medical History: Denies: Hx Coronary Artery Disease, Hx Heart Attack, Hx Hypertension Pulmonary Medical History: Reports: Hx Bronchitis Denies: Hx Asthma, Hx COPD, Hx Pneumonia Neurological Medical History: Reports: Hx Migraine. Denies: Hx Cerebrovascular Accident, Hx Seizures Renal/ Medical History: Reports: Hx Ovarian Cysts. Denies: Hx Peritoneal Dialysis Musculoskeltal Medical History: Reports Hx Arthritis - bilateral hips and knees Skin Medical History: Denies Hx MRSA Psychiatric Medical History: Reports: Hx Attention Deficit Hyperactivity Disorder, Hx Depression Traumatic Medical History: Reports: Hx Fractures Past Surgical History: Reports: Hx Bowel Surgery - hemmorhoids, Hx Gynecologic Surgery - Mirena IUD, Hx Hysterectomy, Hx Oral Surgery - wisdom, Hx Tubal Ligation. Denies: Hx Pacemaker - Immunizations Immunizations up to date: Yes Hx Diphtheria, Pertussis, Tetanus Vaccination: Yes Physical Exam - Vital signs Vitals: Temp Pulse Resp BP Pulse Ox 98.6 F 72 16 111/74 100 09/06/17 17:02 09/06/17 17:02 09/06/17 17:02 09/06/17 17:02 09/06/17 17:02 Course - Vital Signs Vital signs: Temp Pulse Resp BP Pulse Ox 98.6 F 72 16 111/74 100 09/06/17 17:02 09/06/17 17:02 09/06/17 17:02 09/06/17 17:02 09/06/17 17:02
[2017-09-06 17:52] LABS: ABSOLUTE EOSINOPHILS # (AUTO) 0.1 10^3/uL (0.0-0.6); ABSOLUTE LYMPHOCYTES (AUTO) 1.9 10^3/uL (0.5-4.7); ABSOLUTE MONOCYTES (AUTO) 0.4 10^3/uL (0.1-1.4); ABSOLUTE NEUT (AUTO) 4.6 10^3/uL (1.7-8.2); BASOPHILS % (AUTO) 0.6 % (0-2); EOSINOPHILS % (AUTO) 1.3 % (0-6); HEMATOCRIT 42.5 % (36.0-47.0); HEMOGLOBIN 14.3 g/dL (12.0-15.5); LYMPHOCYTES % (AUTO) 26.7 % (13-45); MEAN CORPUSCULAR HEMOGLOBIN 31.9 pg (27.0-33.4); MEAN CORPUSCULAR HGB CONC 33.8 g/dL (32.0-36.0); MEAN CORPUSCULAR VOLUME 95 fl (80-97); MONOCYTES % (AUTO) 6.3 % (3-13); PLATELET COUNT 196 10^3/uL (150-450); RED BLOOD COUNT 4.49 10^6/uL (3.72-5.28); RED CELL DISTRIBUTION WIDTH 13.8 % (11.5-14.0); SEGMENTED NEUTROPHILS % (AUTO) 65.1 % (42-78); TOTAL CELLS COUNTED % (AUTO) 100 %
[2017-09-06 18:12] LABS: ANION GAP 13 (5-19); BLOOD UREA NITROGEN 22 mg/dL (7-20); CALCIUM 10.3 mg/dL (8.4-10.2); CARBON DIOXIDE 30 mmol/L (22-30); CHLORIDE 102 mmol/L (98-107); GLUCOSE 91 mg/dL (75-110); POTASSIUM 4.4 mmol/L (3.6-5.0); SODIUM 144.7 mmol/L (137-145)
[2017-09-06] MEDS ORDERED: FENTANYL CITRATE INJ/PF 100 MCG/2 ML AMPUL IV ONE ×2 (19:04→21:16)
[2017-09-06] MEDS ORDERED: RINGERS SOLUTION,LACTATED 1,000 ML IV ONE (19:05)
[2017-09-06 20:19] LABS: AMORPHOUS SEDIMENT,URINE TRACE /HPF; APPEARANCE,URINE TURBID; BILIRUBIN,URINE NEGATIVE (NEGATIVE); COLOR,URINE YELLOW; GLUCOSE, URINE NEGATIVE (NEGATIVE); KETONES,URINE 20 mg/dL (NEGATIVE); LEUKOCYTE ESTERASE,URINE NEGATIVE (NEGATIVE); NITRITE,URINE NEGATIVE (NEGATIVE); PROTEIN,URINE 30 mg/dL (NEGATIVE); URINE SPECIFIC GRAVITY 1.029
[2017-09-06] MEDS ORDERED: CEFTRIAXONE 1 GM/D5W RTU 1 GM/50 ML RTUPB IV ONE (20:39)
--- NOTE | 2017-09-06 20:50 | ER Document Report ---
ED General - General Chief Complaint: Flank Pain Stated Complaint: URINARY PAIN Time Seen by Provider: 09/06/17 17:03 Mode of Arrival: Ambulatory Information source: Patient Notes: This is a 31-year-old female who presents to the emergency room with persistent right flank pain right lower side pain. Patient did state that the symptoms started over the weekend (4 days ago) and she did have some fever at the time. She was evaluated here and had a CT of the abdomen which showed a low-lying kidney in the right lower quadrant with some stranding and no obvious obstruction. She is being treated for pyelonephritis. She is able to tolerate fluids but states that the Tylenol and ibuprofen have not been allowing her to sleep because of the pain. She denies any fever in the last 2 days. She denies any vaginal discharge. She does have a history of a partial hysterectomy (due to menorrhagia). Denies any history of STD. TRAVEL OUTSIDE OF THE [place] IN LAST 30 DAYS: No - HPI Onset: Last week Onset/Duration: Gradual Quality of pain: Dull Severity: Moderate Pain Level: 2 Associated symptoms: Chills, Fever. denies: Diarrhea, Nausea, Vomiting, Shortness of breath Exacerbated by: Denies Relieved by: Denies Similar symptoms previously: Yes Recently seen / treated by doctor: Yes - Related Data Allergies/Adverse Reactions: paroxetine HCl [From Paxil] Allergy (Intermediate, Verified 09/06/17 17:01) sumatriptan [From Imitrex] Adverse Reaction (Unknown, Verified 09/06/17 17:01) sumatriptan succinate [From Imitrex] Adverse Reaction (Unknown, Verified 17:01) Past Medical History - General Information source: Patient - Social History Smoking Status: Current Every Day Smoker Cigarette use (# per day): Yes - Half pack per day Chew tobacco use (# tins/day): No Frequency of alcohol use: Occasional Drug Abuse: None Lives with: Family Family History: Reviewed & Not Pertinent Patient has suicidal ideation: No Patient has homicidal ideation: No - Past Medical History Cardiac Medical History: Denies: Hx Coronary Artery Disease, Hx Heart Attack, Hx Hypertension Pulmonary Medical History: Reports: Hx Bronchitis Denies: Hx Asthma, Hx COPD, Hx Pneumonia Neurological Medical History: Reports: Hx Migraine. Denies: Hx Cerebrovascular Accident, Hx Seizures Renal/ Medical History: Reports: Hx Ovarian Cysts. Denies: Hx Peritoneal Dialysis Musculoskeltal Medical History: Reports Hx Arthritis - bilateral hips and knees Skin Medical History: Denies Hx MRSA Psychiatric Medical History: Reports: Hx Attention Deficit Hyperactivity Disorder, Hx Depression Traumatic Medical History: Reports: Hx Fractures Past Surgical History: Reports: Hx Bowel Surgery - hemmorhoids, Hx Gynecologic Surgery - Mirena IUD, Hx Hysterectomy, Hx Oral Surgery - wisdom, Hx Tubal Ligation. Denies: Hx Pacemaker - Immunizations Immunizations up to date: Yes Hx Diphtheria, Pertussis, Tetanus Vaccination: Yes Review of Systems - Review of Systems Constitutional: denies: Chills - No fever chills in the last 2 days. She did have fever 4 days ago., Fever EENT: No symptoms reported Cardiovascular: No symptoms reported. denies: Dyspnea, Syncope, Lightheaded Respiratory: denies: Cough, Hemoptysis, Short of breath, Sputum, Wheezing Gastrointestinal: See HPI Genitourinary: See HPI Female Genitourinary: No symptoms reported. denies: Vaginal discharge, Vaginal odor, Painful intercourse Musculoskeletal: No symptoms reported Skin: No symptoms reported Hematologic/Lymphatic: No symptoms reported Neurological/Psychological: No symptoms reported Physical Exam - Vital signs Vitals: Temp Pulse Resp BP Pulse Ox 98.6 F 72 16 111/74 100 09/06/17 17:02 09/06/17 17:02 09/06/17 17:02 09/06/17 17:02 09/06/17 17:02 Notes: Physical exam: GENERAL: 81-year-old female, alert and oriented 3, no acute distress. HEAD: Atraumatic, normocephalic. EYES: Pupils equal round and reactive to light, extraocular movements intact, sclera anicteric, conjunctiva are normal. ENT: TMs normal, nares patent, oropharynx clear without exudates. Moist mucous membranes. NECK: Normal range of motion, supple without obvious mass or JVD. LUNGS: Breath sounds clear to auscultation bilaterally and equal. No wheezes rales or rhonchi. HEART: Regular rate and rhythm without murmurs, rubs or gallops. ABDOMEN: Soft, normoactive bowel sounds. Patient does have right flank pain and right CVA tenderness to palpation. There does not seem to be any pain at McBurney's point or lower in the pelvic region. EXTREMITIES: Normal range of motion, no pitting or edema. No clubbing or cyanosis. NEUROLOGICAL: Cranial nerves II through XII grossly intact. Normal speech, moving all extremities. PSYCH: Normal mood, normal affect. SKIN: Warm, Dry, normal turgor, no rashes or lesions noted. Course - Re-evaluation Re-evalutation: 09/07/17 03:49 Patient was given IV fluids and pain medicines. I reviewed the CT from yesterday. Was no obvious hydronephrosis. There was some stranding around the kidney. The urine test today did show some white cells as well as bacteria. Urine culture was sent. Patient was given a dose of IV ceftriaxone while she was in the emergency room. Plan will be for her to continue the antibiotic and to give her something stronger for pain. - Vital Signs Vital signs: Temp Pulse Resp BP Pulse Ox 97.9 F 56 L 18 134/79 H 100 09/06/17 22:51 09/06/17 22:51 09/06/17 22:51 09/06/17 22:51 09/06/17 22:51 - Laboratory Result Diagrams: 09/06/17 17:31 09/06/17 17:31 Laboratory results interpreted by me: 09/06/17 09/06/17 17:31 19:35 BUN 22 H Calcium 10.3 H Urine Protein 30 H Urine Ketones 20 H Urine Urobilinogen 2.0 H - Diagnostic Test Radiology reviewed: Image reviewed, Reports reviewed - Pelvic ultrasound shows no obvious pathology Discharge - Discharge Clinical Impression: Pyelonephritis Condition: Stable Disposition: HOME, SELF-CARE Instructions: Pyelonephritis ([facility]) Additional Instructions: Thank you for choosing [facility] for your care. The examination and treatment you have received in the Emergency Department today has been rendered on an emergency basis only and is not intended to be a substitute for complete medical care. You should contact your doctor as it is important that she/he examine you for any new or remaining problems. If given a copy of any lab tests or radiology reports, please bring them with you when you see your physician. If your problem worsens or new symptoms appear and you are unable to arrange prompt follow-up care, return to the Emergency Department. Specific signs to look out for: Worsening pain, not tolerating fluids or any concerns or getting worse. Any other instructions: Continue with the antibiotics. Drink plenty of fluids. Continue with ibuprofen. Use the Percocet when the pain is not relieved with the ibuprofen. Follow-up with your primary care doctor: Bring a copy of the labs as well as CT report and ultrasound report. Urine cultures were sent and they may take a few days to come back. The pain medicine you're taking prescribed as a narcotic. There are several important things you should know about this medicine: 1. This medicine contains Tylenol: It is important that you do not take Tylenol (or acetaminophen) while on this medicine. Tylenol is metabolized by the liver and taking too much Tylenol (acetaminophen) can lay to liver damage and even liver failure. 2. Taking narcotics for too long can lead to physical and mental dependence. Take this medicine only if really needed and in the lowest quantity to achieve pain relief. 3. Do not drink alcohol while on this medicine. Alcohol interacts with narcotics and the combination can be dangerous. 4. Do not drive or operate machinery while on this medicine. 5. Narcotics do cause constipation, so drink plenty of fluids and daily stool softeners. Prescriptions: Oxycodone HCl/Acetaminophen [Percocet 5-325 mg Tablet] 1 - 2 tab PO ASDIR PRN # 25 tablet PRN Reason:
--- NOTE | 2017-09-06 21:22 | RADIOLOGY REPORT (SQ) ---
EXAM DESCRIPTION: U/S NON OB PEL TV W/DOPPLER COMPLETED DATE/TIME: 09/06/2017 8:45 pm REASON FOR STUDY: lower abdominal pain COMPARISON: 01/15/2015 TECHNIQUE: Dynamic and static grayscale images acquired of the pelvis via transvaginal approach and recorded on PACS. Additional selected color Doppler and spectral images recorded. LIMITATIONS: None. FINDINGS: Uterus and ovaries not identified. FREE FLUID: Trace. OTHER: No other significant finding. IMPRESSION: Trace free fluid. Uterus and ovaries not identified. TECHNICAL DOCUMENTATION: JOB ID: [id number] [place]-72 2010 [employer]- All Rights Reserved Rev-09/09 Reading location - IP/workstation name: [email or web address]
[2017-09-06] MEDS ORDERED: ONDANSETRON ODT 4 MG TAB (6 TAB/ER DISP) PO PRN (21:59)
[2017-09-06] MEDS ORDERED: HYDROCODONE/ACETAMINOPHEN 5-325 MG (6 TAB/ER DISP) PO PRN (22:36)
[2017-09-06 22:53] VITALS: BP 134/79
== END 2017-09-06 22:51 | disposition home or self-care (01) ==
LOC: ER 16:55
DX: N12 Tubulo-interstitial nephritis, not specified as acute or chronic (principal); R10.9 Unspecified abdominal pain; F17.210 Nicotine dependence, cigarettes, uncomplicated
CPT/HCPCS: 96376; 99284; 96361; 96375; 96365; 36415; 87086; 85025; 80048; 81001; 76830; 93976; J3010; J1885; J7120; J0696

== ENCOUNTER 2017-09-12 16:15 | Emergency (ER) | payer MEDICAID ==
--- NOTE | 2017-09-12 17:32 | ER Document Report ---
ED Medical Screen (RME) - General Chief Complaint: Flank Pain Stated Complaint: FLANK PAIN Time Seen by Provider: 09/12/17 17:27 Mode of Arrival: Ambulatory Information source: Patient Notes: Patient presents complaining of right flank and right abdominal pain for the past week. This is patient's third visit for this complaint over the past week. Patient was diagnosed with UTI and placed on Keflex. Review of patient' s urine culture does demonstrate E. coli with susceptibilities to cephalosporins. Patient states that she has had nausea with a fever of 102 today. Patient reports decreased urine output. Patient feels as though her symptoms are worsening. I have greeted and performed a rapid initial assessment of this patient. A comprehensive ED assessment and evaluation of the patient, analysis of test results and completion of the medical decision making process will be conducted by additional ED providers. TRAVEL OUTSIDE OF THE [place] IN LAST 30 DAYS: No - Related Data Allergies/Adverse Reactions: paroxetine HCl [From Paxil] Allergy (Intermediate, Verified 09/06/17 17:01) sumatriptan [From Imitrex] Adverse Reaction (Unknown, Verified 09/06/17 17:01) sumatriptan succinate [From Imitrex] Adverse Reaction (Unknown, Verified 17:01) Past Medical History - Social History Chew tobacco use (# tins/day): No Frequency of alcohol use: None Drug Abuse: None - Past Medical History Cardiac Medical History: Denies: Hx Coronary Artery Disease, Hx Heart Attack, Hx Hypertension Pulmonary Medical History: Reports: Hx Bronchitis Denies: Hx Asthma, Hx COPD, Hx Pneumonia Neurological Medical History: Reports: Hx Migraine. Denies: Hx Cerebrovascular Accident, Hx Seizures Renal/ Medical History: Reports: Hx Ovarian Cysts. Denies: Hx Peritoneal Dialysis Musculoskeltal Medical History: Reports Hx Arthritis - bilateral hips and knees Skin Medical History: Denies Hx MRSA Psychiatric Medical History: Reports: Hx Attention Deficit Hyperactivity Disorder, Hx Depression Traumatic Medical History: Reports: Hx Fractures Past Surgical History: Reports: Hx Bowel Surgery - hemmorhoids, Hx Gynecologic Surgery - Mirena IUD, Hx Hysterectomy, Hx Oral Surgery - wisdom, Hx Tubal Ligation. Denies: Hx Pacemaker - Immunizations Immunizations up to date: Yes Hx Diphtheria, Pertussis, Tetanus Vaccination: Yes Physical Exam - Vital signs Vitals: Temp Pulse Resp BP Pulse Ox 98.7 F 85 15 122/78 96 09/12/17 16:21 09/12/17 16:21 09/12/17 16:21 09/12/17 16:21 09/12/17 16:21 - Back Back: CVA tenderness - right Course - Vital Signs Vital signs: Temp Pulse Resp BP Pulse Ox 98.7 F 85 15 122/78 96 09/12/17 16:21 09/12/17 16:21 09/12/17 16:21 09/12/17 16:21 09/12/17 16:21
[2017-09-12] MEDS ORDERED: HYDROCODONE/ACETAMINOPHEN 5-325 MG TABLET PO ONE (17:38)
[2017-09-12 17:51] LABS: APPEARANCE,URINE SLIGHTLY-CLOUDY; BILIRUBIN,URINE NEGATIVE (NEGATIVE); COLOR,URINE YELLOW; GLUCOSE, URINE NEGATIVE (NEGATIVE); KETONES,URINE NEGATIVE (NEGATIVE); LEUKOCYTE ESTERASE,URINE NEGATIVE (NEGATIVE); NITRITE,URINE NEGATIVE (NEGATIVE); PROTEIN,URINE NEGATIVE (NEGATIVE); URINE SPECIFIC GRAVITY 1.017; UROBILINOGEN,URINE NEGATIVE mg/dL (<2.0)
[2017-09-12 18:57] LABS: ABSOLUTE EOSINOPHILS # (AUTO) 0.1 10^3/uL (0.0-0.6); ABSOLUTE MONOCYTES (AUTO) 0.5 10^3/uL (0.1-1.4); BASOPHILS % (AUTO) 0.6 % (0-2); EOSINOPHILS % (AUTO) 1.3 % (0-6); HEMATOCRIT 39.2 % (36.0-47.0); HEMOGLOBIN 13.3 g/dL (12.0-15.5); LYMPHOCYTES % (AUTO) 25.9 % (13-45); MEAN CORPUSCULAR HEMOGLOBIN 32.2 pg (27.0-33.4); MEAN CORPUSCULAR VOLUME 95 fl (80-97); MONOCYTES % (AUTO) 6.5 % (3-13); PLATELET COUNT 192 10^3/uL (150-450); RED BLOOD COUNT 4.14 10^6/uL (3.72-5.28); RED CELL DISTRIBUTION WIDTH 13.7 % (11.5-14.0); SEGMENTED NEUTROPHILS % (AUTO) 65.7 % (42-78); TOTAL CELLS COUNTED % (AUTO) 100 %; WHITE BLOOD COUNT 7.6 10^3/uL (4.0-10.5)
[2017-09-12 19:15] LABS: ALANINE AMINOTRANSFERASE 26 U/L (9-52); ALBUMIN 4.7 g/dL (3.5-5.0); ALKALINE PHOSPHATASE 45 U/L (38-126); ANION GAP 11 (5-19); ASPARTATE AMINO TRANSFERASE 19 U/L (14-36); BILIRUBIN,DIRECT 0.3 mg/dL (0.0-0.4); BILIRUBIN,TOTAL 0.5 mg/dL (0.2-1.3); BLOOD UREA NITROGEN 13 mg/dL (7-20); CALCIUM 9.8 mg/dL (8.4-10.2); CARBON DIOXIDE 27 mmol/L (22-30); CHLORIDE 103 mmol/L (98-107); GLUCOSE 90 mg/dL (75-110); LIPASE 34.1 U/L (23-300); POTASSIUM 3.9 mmol/L (3.6-5.0); SODIUM 141.4 mmol/L (137-145); TOTAL PROTEIN 7.2 g/dL (6.3-8.2)
--- NOTE | 2017-09-12 21:29 | RADIOLOGY REPORT (SQ) ---
EXAM DESCRIPTION: U/S ABDOMEN LIMITED W/O DOP COMPLETED DATE/TIME: 09/12/2017 8:42 pm REASON FOR STUDY: RUQ, r flank pain COMPARISON: None. TECHNIQUE: Dynamic and static grayscale images acquired of the abdomen and recorded on PACS. Additio nal selected color Doppler and spectral images recorded. LIMITATIONS: None. FINDINGS: PANCREAS: No masses. Visualized pancreatic duct normal caliber. LIVER: No masses. Echotexture normal. LIVER VASCULATURE: Normal directional flow of the main portal vein and hepatic veins. GALLBLADDER: No stones. Normal wall thickness. No pericholecystic fluid. ULTRASOUND-DETECTED DEMARCO'S SIGN: Negative. INTRAHEPATIC DUCTS AND COMMON DUCT: CBD and intrahepatic ducts normal caliber. No filling defects. INFERIOR VENA CAVA: Normal flow. AORTA: No aneurysm. RIGHT KIDNEY: Normal size. Normal echogenicity. No solid or suspicious masses. No hydronephrosis. No calcifications. PERITONEAL AND RIGHT PLEURAL SPACE: No ascites or effusions. OTHER: No other significant findings. IMPRESSION: No significant findings. TECHNICAL DOCUMENTATION: JOB ID: [id number] [place]-72 2010 [employer]- All Rights Reserved Reading location - IP/workstation name: [email or web address]
[2017-09-12] MEDS ORDERED: OXYBUTYNIN CHLORIDE 5 MG TABLET PO ONE (23:55)
[2017-09-12] MEDS ORDERED: PREDNISONE 20 MG TABLET PO ONE (23:55)
[2017-09-12] MEDS ORDERED: LIDOCAINE 5% (700 MG) TRANSDERMAL ADH..PATCH TP ONE (23:55)
[2017-09-12] MEDS ORDERED: MORPHINE SULFATE IR 15 MG TABLET PO ONE (23:55)
--- NOTE | 2017-09-12 23:59 | ER Document Report ---
ED General - General Chief Complaint: Flank Pain Stated Complaint: FLANK PAIN Time Seen by Provider: 09/12/17 17:27 Mode of Arrival: Ambulatory Notes: Patient is a 31-year-old female with a past medical history of rheumatoid arthritis who presents again today for the third time in the next past 1 week for right lower abdominal and right flank pain. I did see this patient approximately 5 days ago and at that time informed her of the possibility of a kidney inflammatory condition that could be infectious versus autoimmune in origin. Patient states that she took the antibiotics but did not have any improvement in her symptoms. She was again seen several days ago and at that time had a repeat reassuring workup. She states that the Percocet with which she was started discharged home does help with her pain but does not completely resolve the discomfort. She denies any associated fever, vomiting, but does note ongoing hematuria. She describes the pain to her right flank and right lower abdomen is a throbbing, aching, stabbing pain. Nothing seems to worsen the pain other than moving or touching the areas. Prior to the past 1 week she denies any history of similar symptoms in the past. She has contacted her primary care doctor and is scheduled for an appointment in 2 days where she plans to get a urology referral on an urgent basis. TRAVEL OUTSIDE OF THE [place] IN LAST 30 DAYS: No - Related Data Allergies/Adverse Reactions: paroxetine HCl [From Paxil] Allergy (Intermediate, Verified 09/06/17 17:01) sumatriptan [From Imitrex] Adverse Reaction (Unknown, Verified 09/06/17 17:01) sumatriptan succinate [From Imitrex] Adverse Reaction (Unknown, Verified 17:01) Past Medical History - General Information source: Patient - Social History Smoking Status: Current Every Day Smoker Chew tobacco use (# tins/day): No Frequency of alcohol use: None Drug Abuse: None Lives with: Spouse/Significant other Family History: Reviewed & Not Pertinent Patient has suicidal ideation: No Patient has homicidal ideation: No - Past Medical History Cardiac Medical History: Denies: Hx Coronary Artery Disease, Hx Heart Attack, Hx Hypertension Pulmonary Medical History: Reports: Hx Bronchitis Denies: Hx Asthma, Hx COPD, Hx Pneumonia Neurological Medical History: Reports: Hx Migraine. Denies: Hx Cerebrovascular Accident, Hx Seizures Renal/ Medical History: Reports: Hx Ovarian Cysts. Denies: Hx Peritoneal Dialysis Musculoskeltal Medical History: Reports Hx Arthritis - bilateral hips and knees Skin Medical History: Denies Hx MRSA Psychiatric Medical History: Reports: Hx Attention Deficit Hyperactivity Disorder, Hx Depression Traumatic Medical History: Reports: Hx Fractures Past Surgical History: Reports: Hx Bowel Surgery - hemmorhoids, Hx Gynecologic Surgery - Mirena IUD, Hx Hysterectomy, Hx Oral Surgery - wisdom, Hx Tubal Ligation. Denies: Hx Pacemaker - Immunizations Immunizations up to date: Yes Hx Diphtheria, Pertussis, Tetanus Vaccination: Yes Review of Systems - Review of Systems Notes: Constitutional: Negative for fever. HENT: Negative for sore throat. Eyes: Negative for visual changes. Cardiovascular: Negative for chest pain. Respiratory: Negative for shortness of breath. Gastrointestinal: Positive for abdominal and right flank pain Genitourinary: Positive for urinary urgency and hematuria Musculoskeletal: Negative for back pain. Skin: Negative for rash. Neurological: Negative for headaches, weakness or numbness. 10 point ROS negative except as marked above and in HPI. Physical Exam - Vital signs Vitals: Temp Pulse Resp BP Pulse Ox 98.7 F 85 15 122/78 96 09/12/17 16:21 09/12/17 16:21 09/12/17 16:21 09/12/17 16:21 09/12/17 16:21 Interpretation: Normal Notes: PHYSICAL EXAMINATION: GENERAL: Well-appearing, well-nourished and in no acute distress. HEAD: Atraumatic, normocephalic. EYES: Pupils equal round and reactive to light, extraocular movements intact, sclera anicteric, conjunctiva are normal. ENT: nares patent, oropharynx clear without exudates. Moderately dry mucous membranes. NECK: Normal range of motion, supple without lymphadenopathy LUNGS: Breath sounds clear to auscultation bilaterally and equal. No wheezes rales or rhonchi. HEART: Regular rate and rhythm without murmurs ABDOMEN: Soft, focal right CVA tenderness otherwise no localized areas of abdominal tenderness, normoactive bowel sounds. No guarding, no rebound. No masses appreciated. EXTREMITIES: Normal range of motion, no pitting or edema. No cyanosis. NEUROLOGICAL: No focal neurological deficits. Moves all extremities spontaneously and on command. PSYCH: Moderately anxious SKIN: Warm, Dry, normal turgor, no rashes or lesions noted. Course - Re-evaluation Re-evalutation: 09/12/17 23:56 Patient presents with ongoing right flank and right low abdomen pain. Patient continues to complain of hematuria and urinary frequency with urgency. She is scheduled to see urology later this week. Patient did not have any improvement after receiving cephalexin. Workup today remains unremarkable. I do not see any indication for repeat CT imaging as her repeat ultrasound today remains unremarkable. At this time point I am concerned the patient could have an autoimmune condition with associated renal inflammation causing her symptoms particular given the CT that was obtained on the as well as her known history of rheumatoid arthritis. She was trialed on a seven-day course of steroids, oxybutynin and has been given several additional pain medications to help control her symptoms until she can see urology in the next several days. At this time will discharge with return precautions and follow-up recommendations. Verbal discharge instructions given a the bedside and opportunity for questions given. Medication warnings reviewed. Patient is in agreement with this plan and has verbalized understanding of return precautions and the need for primary care follow-up in the next 24-72 hours. - Vital Signs Vital signs: Temp Pulse Resp BP Pulse Ox 98.3 F 79 18 125/75 100 09/13/17 00:11 09/13/17 00:11 09/13/17 00:11 09/13/17 00:11 09/13/17 00:11 - Laboratory Result Diagrams: 09/12/17 18:35 09/12/17 18:35 Laboratory results interpreted by me: 09/12/17 18:35 Creatinine 0.47 L - Diagnostic Test Radiology reviewed: Reports reviewed Discharge - Discharge Clinical Impression: Right flank pain Hematuria Qualifiers: Hematuria type: unspecified type Qualified Code(s): R31.9 - Hematuria, unspecified Condition: Good Disposition: HOME, SELF-CARE Additional Instructions: Your being treated with a course of steroids and an antispasmodic agent called oxybutynin. We are using his medications to treat the possibility of an autoimmune condition causing your symptoms. Repeat workup remains unremarkable as is your ultrasound. Please follow-up with your urologist at your earliest capacity. Return if you develop fever greater than 100.4, worsening pain, persistent vomiting, or any other symptoms that are worrisome to you Prescriptions: Morphine Sulfate [Morphine Ir 15 mg Tablet] 15 mg PO Q4HP PRN #12 tablet PRN Reason: Oxybutynin Chloride 5 mg PO TID PRN #30 tablet PRN Reason: Prednisone [Deltasone 20 mg Tablet] 3 tab PO DAILY 6 Days tablet
[2017-09-13 00:13] VITALS: BP 125/75
== END 2017-09-13 00:11 | disposition home or self-care (01) ==
LOC: ER 16:15
DX: R10.9 Unspecified abdominal pain (principal); R10.31 Right lower quadrant pain; R31.0 Gross hematuria; R39.15 Urgency of urination; R35.0 Frequency of micturition; M06.9 Rheumatoid arthritis, unspecified; F17.200 Nicotine dependence, unspecified, uncomplicated; Z87.42 Personal history of other diseases of the female genital tract; Z90.710 Acquired absence of both cervix and uterus; Z98.51 Tubal ligation status; Z88.8 Allergy status to other drugs, medicaments and biological substances
CPT/HCPCS: 99284; 36415; 87086; 83690; 85025; 80053; 81001; 76705; J3490 ×2; J7512

== ENCOUNTER 2017-09-19 00:12 | Emergency (ER) | payer MEDICAID ==
[2017-09-19] MEDS ORDERED: FENTANYL CITRATE INJ/PF 100 MCG/2 ML AMPUL IV ONE ×2 (01:25→02:51)
--- NOTE | 2017-09-19 01:29 | ER Document Report ---
ED General - General Chief Complaint: Flank Pain Stated Complaint: ABDOMINAL PAIN Time Seen by Provider: 09/19/17 01:12 Notes: Patient is a 31-year-old female presents with complaint of severe right-sided abdominal and flank pain. Is her fourth visit to the ER this month for the same thing. She is had a CT scan without contrast which did show some mild inflammation around the right kidney. Kidney is actually low in the right pelvis. She also had an ultrasound which did not show any evidence of ovarian torsion. She also had an ultrasound renally does not show any concerns. She has history rheumatoid arthritis and therefore it was trialed on steroids. She said this did not help. She said comes in today crying in severe pain. She says she does not want to be sent home with pain medicine. Her are frustrated and said they cannot be sent home as she continues to get worse and feels very unwell. She has had no vomiting. No diarrhea. No associated fevers. She was trialed on antibiotics in case there is some associated pyelonephritis. This did not help either. Her urine since the trial has been negative. TRAVEL OUTSIDE OF THE [place] IN LAST 30 DAYS: No - Related Data Allergies/Adverse Reactions: paroxetine HCl [From Paxil] Allergy (Intermediate, Verified 09/19/17 02:30) sumatriptan [From Imitrex] Adverse Reaction (Unknown, Verified 09/19/17 02:30) sumatriptan succinate [From Imitrex] Adverse Reaction (Unknown, Verified 02:30) Past Medical History - Social History Smoking Status: Unknown if Ever Smoked Frequency of alcohol use: None Drug Abuse: None Family History: Reviewed & Not Pertinent Patient has suicidal ideation: No Patient has homicidal ideation: No - Past Medical History Cardiac Medical History: Denies: Hx Coronary Artery Disease, Hx Heart Attack, Hx Hypertension Pulmonary Medical History: Reports: Hx Bronchitis Denies: Hx Asthma, Hx COPD, Hx Pneumonia Neurological Medical History: Reports: Hx Migraine. Denies: Hx Cerebrovascular Accident, Hx Seizures Renal/ Medical History: Reports: Hx Ovarian Cysts. Denies: Hx Peritoneal Dialysis Musculoskeltal Medical History: Reports Hx Arthritis - bilateral hips and knees Skin Medical History: Denies Hx MRSA Psychiatric Medical History: Reports: Hx Attention Deficit Hyperactivity Disorder, Hx Depression Traumatic Medical History: Reports: Hx Fractures Past Surgical History: Reports: Hx Bowel Surgery - hemmorhoids, Hx Gynecologic Surgery - Mirena IUD, Hx Hysterectomy, Hx Oral Surgery - wisdom, Hx Tubal Ligation. Denies: Hx Pacemaker - Immunizations Immunizations up to date: Yes Hx Diphtheria, Pertussis, Tetanus Vaccination: Yes Review of Systems - Review of Systems Notes: My Normal Review Basic REVIEW OF SYSTEMS: CONSTITUTIONAL : Denies fever, chills, or sweats. Denies recent illness. EENT: Denies eye, ear, throat, or mouth pain or symptoms. Denies nasal or sinus congestion. CARDIOVASCULAR: Denies chest pain. RESPIRATORY: Denies cough, cold, or chest congestion. Denies shortness of breath, difficulty breathing, or wheezing. GASTROINTESTINAL: Severe right-sided pain. GENITOURINARY: Has had decreased urination. FEMALE GENITOURINARY: Denies vaginal bleeding, abnormal or irregular periods. Hysterectomy in the past. MUSCULOSKELETAL: Denies neck or back pain or joint pain or swelling. SKIN: Denies rash or skin lesions. NEUROLOGICAL: Denies altered mental status or loss of consciousness. Denies headache. Denies weakness or paralysis or loss of use of either side. Denies problems with gait or speech. Denies sensory or motor loss. ALL OTHER SYSTEMS REVIEWED AND NEGATIVE. Physical Exam - Vital signs Vitals: Temp Pulse Resp BP Pulse Ox 98.7 F 84 20 137/82 H 100 09/19/17 00:19 09/19/17 00:19 09/19/17 00:19 09/19/17 00:09/19/17 00:19 - Notes Notes: General Appearance: Well nourished, alert, cooperative, no acute distress, severe obvious discomfort. Vitals: reviewed, See vital signs table. Head: no swelling or tenderness to the head Eyes: PERRL, EOMI, Conjuctiva clear Mouth: No decreasd moisture Lungs: No wheezing, No rales, No rhonci, No accessory muscle use, good air exchange bilaterally. Heart: Normal rate, Regular rythm, No murmur, no rub Abdomen: Normal BS, soft, No rigidity, patient has severe pain to palpation over the right side of the abdomen and flank. Mild pain to the left side of the abdomen., No guarding, no rebound, no abdominal masses, no organomegaly Extremities: strength 5/5 in all extremities, good pulses in all extremities, no swelling or tenderness in the extremities, no edema. Skin: warm, dry, appropriate color, no rash Neuro: speech clear, oriented x 3, normal affect, responds appropriately to questions. Course - Re-evaluation Re-evalutation: 09/19/17 03:26 The exact cause of the patient's flank pain is still unclear. I do not suspect secondary gain or opiate abuse. The only opiate medications she has received have been the last 2 visits that she has been here because of her severe flank pain. Her she seems to be in very limited pain when she does come to the ER. I did a CT scan with IV contrast to look for evidence of renal infarction. There is no evidence of this. 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 A repeat ultrasound to see if there is evidence of ovarian torsion. There is still no evidence of ovarian torsion. Patient's pain is improved after 2 doses of the pain medication. I talked her length informed her that feel that she does need to be evaluated by urologist. She says that she did have appointment with urologist but her Medicaid was not transferred over correctly and therefore she cannot see the urologist until the first of the month. I informed her that we do not have urology here to see her here in the hospital. I informed out of to transfer. I informed her I am happy to call around and try to get her transferred because of this recurrent pain and recurrent visits for this pain without a clear etiology. I informed her that I cannot guarantee that all the exceptions being that all her labs and vital signs are completely normal however I be more than happy and willing to try. Patient says she does not want to go anywhere else right now. She says that she is feeling improved and has been dealing with this off and on for a few weeks and actually prefers to go home at this point. I will prescribe her some more pain medication but strongly encourage her to take Motrin first and to leave the opiate medications for only when her pain is absolutely intractable as we do not want her to become dependent on these medications. Patient is understanding of this and agrees with this. I informed her to return to ER immediately if she has worsening recurrent pain, vomiting, fevers, or feels unwell. Dictation of this chart was performed using voice recognition software; therefore, there may be some unintended grammatical errors. - Vital Signs Vital signs: Temp Pulse Resp BP Pulse Ox 98.7 F 84 17 112/78 100 09/19/17 00:19 09/19/17 00:19 09/19/17 02:50 09/19/17 02:50 09/19/17 02:50 - Laboratory Result Diagrams: 09/19/17 01:57 09/19/17 01:57 Laboratory results interpreted by me: 09/19/17 09/19/17 09/19/17 01:57 01:57 02:50 Sodium 145.2 H BUN 25 H Lactic Acid < 0.5 L Calcium 10.3 H Urine Urobilinogen 2.0 H Urine Ascorbic Acid 40 H Discharge - Discharge Clinical Impression: Right flank pain Condition: Good Disposition: HOME, SELF-CARE Instructions: Oral Narcotic Medication ([facility]) Additional Instructions: Please follow up with the urologist as soon as able. Please return to the ER if you have intractable pain, fevers, vomiting, or feel unwell. Please only take the oxycodone or hydrocodone when in severe pain and if the Motrin is not helping. When want your to use the hydrocodone and oxycodone as infrequently as possible because they are addicting medications. Prescriptions: Ibuprofen [Motrin 600 Mg Tablet] 600 mg PO TID #20 tablet Oxycodone HCl/Acetaminophen [Percocet 5-325 mg Tablet] 1 tab PO Q4H PRN #15 tablet PRN Reason:
[2017-09-19 02:11] LABS: ABSOLUTE BASOPHILS # (AUTO) 0.1 10^3/uL (0.0-0.2); ABSOLUTE EOSINOPHILS # (AUTO) 0.2 10^3/uL (0.0-0.6); ABSOLUTE LYMPHOCYTES (AUTO) 2.2 10^3/uL (0.5-4.7); ABSOLUTE MONOCYTES (AUTO) 0.8 10^3/uL (0.1-1.4); ABSOLUTE NEUT (AUTO) 4.3 10^3/uL (1.7-8.2); BASOPHILS % (AUTO) 0.7 % (0-2); EOSINOPHILS % (AUTO) 2.3 % (0-6); HEMATOCRIT 36.7 % (36.0-47.0); HEMOGLOBIN 12.7 g/dL (12.0-15.5); LYMPHOCYTES % (AUTO) 29.7 % (13-45); MEAN CORPUSCULAR HEMOGLOBIN 32.7 pg (27.0-33.4); MEAN CORPUSCULAR HGB CONC 34.6 g/dL (32.0-36.0); MEAN CORPUSCULAR VOLUME 95 fl (80-97); MONOCYTES % (AUTO) 10.4 % (3-13); PLATELET COUNT 184 10^3/uL (150-450); RED BLOOD COUNT 3.88 10^6/uL (3.72-5.28); SEGMENTED NEUTROPHILS % (AUTO) 56.9 % (42-78); TOTAL CELLS COUNTED % (AUTO) 100 %; WHITE BLOOD COUNT 7.6 10^3/uL (4.0-10.5)
[2017-09-19 02:30] LABS: ALANINE AMINOTRANSFERASE 21 U/L (9-52); ALBUMIN 4.3 g/dL (3.5-5.0); ALKALINE PHOSPHATASE 48 U/L (38-126); ANION GAP 12 (5-19); ASPARTATE AMINO TRANSFERASE 19 U/L (14-36); BILIRUBIN,DIRECT 0.2 mg/dL (0.0-0.4); BILIRUBIN,TOTAL 0.2 mg/dL (0.2-1.3); BLOOD UREA NITROGEN 25 mg/dL (7-20); CALCIUM 10.3 mg/dL (8.4-10.2); CARBON DIOXIDE 26 mmol/L (22-30); CHLORIDE 107 mmol/L (98-107); GLUCOSE 91 mg/dL (75-110); SODIUM 145.2 mmol/L (137-145); TOTAL PROTEIN 7.2 g/dL (6.3-8.2)
--- NOTE | 2017-09-19 02:43 | RADIOLOGY REPORT (SQ) ---
EXAM DESCRIPTION: CT ABDOMEN PELVIS WITH IV CONTRAST CLINICAL HISTORY: 31 years Female, right flank pain Comparison: None. Technique: IV contrast. Coronal and sagittal reformat. This exam was performed according to our departmental dose-optimization program, which includes automated exposure control, adjustment of the mA and/or kV according to patient size and/or use of iterative reconstruction technique.[facility]: Dose Right [facility]: CareDose [facility]: Dose Right [facility]: Teradose 4D [facility]: Orthera LIMITATIONS: None. Findings: Small right adnexal free fluid. No evidence of appendicitis; appendix is not discerned. Nominal right renal malrotation. Inferior thorax, liver, gallbladder, pancreas, spleen, adrenals, renal system, gastrointestinal tract, pelvic organs, lymphatics, vasculature, and musculoskeleton appear otherwise unremarkable. IMPRESSION: No acute findings. Small free pelvic fluid.
[2017-09-19 03:03] LABS: APPEARANCE,URINE CLEAR; BILIRUBIN,URINE NEGATIVE (NEGATIVE); COLOR,URINE YELLOW; GLUCOSE, URINE NEGATIVE (NEGATIVE); KETONES,URINE NEGATIVE (NEGATIVE); LEUKOCYTE ESTERASE,URINE NEGATIVE (NEGATIVE); NITRITE,URINE NEGATIVE (NEGATIVE); PROTEIN,URINE NEGATIVE (NEGATIVE); URINE SPECIFIC GRAVITY 1.038
[2017-09-19] MEDS ORDERED: HYDROCODONE/ACETAMINOPHEN 5-325 MG (6 TAB/ER DISP) PO PRN (03:22)
[2017-09-19 03:25] VITALS: BP 136/89
--- NOTE | 2017-09-19 03:33 | RADIOLOGY REPORT (SQ) ---
EXAM DESCRIPTION: US PELVIS CLINICAL HISTORY: 31 years Female, right sided pain COMPARISON: CT, same day. TECHNIQUE/LIMITATION: No Limitation. FINDINGS: Uterus absent consistent with clinical history of partial hysterectomy. 3.2 cm right ovary appears of normal size, shape, echotexture, and vascularity. Left ovarian fossa is unremarkable. Left ovary not directly visualized. Minimal free fluid. IMPRESSION: No acute findings.
== END 2017-09-19 03:30 | disposition home or self-care (01) ==
LOC: ER 00:12
DX: R10.9 Unspecified abdominal pain (principal); M06.9 Rheumatoid arthritis, unspecified; Z79.52 Long term (current) use of systemic steroids
CPT/HCPCS: 96376; 99284; 96374; 36415; 83605; 85025; 80053; 81001; 76830; 93976; 74177; J3010

== ENCOUNTER 2017-12-18 18:26 | Emergency (ER) | payer MEDICAID ==
[2017-12-18] MEDS ORDERED: HYDROCODONE/ACETAMINOPHEN 5-325 MG TABLET PO ONE (19:06)
--- NOTE | 2017-12-18 19:42 | RADIOLOGY REPORT (SQ) ---
EXAM DESCRIPTION: U/S ABDOMEN LIMITED W/O DOP COMPLETED DATE/TIME: 12/18/2017 7:30 pm REASON FOR STUDY: right sided renal ultraosund COMPARISON: None. TECHNIQUE: Dynamic and static grayscale images acquired of the abdomen and recorded on PACS. Additio nal selected color Doppler and spectral images recorded. LIMITATIONS: None. FINDINGS: PANCREAS: No masses. Visualized pancreatic duct normal caliber. LIVER: No masses. Echotexture normal. LIVER VASCULATURE: Normal directional flow of the main portal vein and hepatic veins. GALLBLADDER: No stones. Decompressed. No pericholecystic fluid. ULTRASOUND-DETECTED DEMARCO'S SIGN: Negative. INTRAHEPATIC DUCTS AND COMMON DUCT: CBD and intrahepatic ducts normal caliber. No filling defects. INFERIOR VENA CAVA: Normal flow. AORTA: No aneurysm identified. RIGHT KIDNEY: Normal size. Normal echogenicity. No solid or suspicious masses. No hydronephros is. No calcifications. PERITONEAL AND RIGHT PLEURAL SPACE: No ascites or effusions. OTHER: No other significant findings. IMPRESSION: NO ACUTE FINDINGS. TECHNICAL DOCUMENTATION: JOB ID: [id number] [employer]- All Rights Reserved Reading location - IP/workstation name: [email or web address]
--- NOTE | 2017-12-18 20:01 | ER Document Report ---
ED Medical Screen (RME) - General Chief Complaint: Flank Pain Stated Complaint: FLANK PAIN Time Seen by Provider: 12/18/17 18:55 TRAVEL OUTSIDE OF THE [place] IN LAST 30 DAYS: No - HPI Patient complains to provider of: side pain Onset: Other - This 32-year-old female with recurrent right sided flank pain as a result of renal issues and reflux which she has had for a long time. She notes that she has been attempting to follow-up with urology as she had been instructed to previously presented with difficulty in obtaining follow-up she was seen in the office once, she has been given a prescription for Toradol which is helped some, she has had intensifying pain along the side there which is making it difficult for her to handle on her daily functioning including normal work. She denies any dysuria she does endorse some abdominal pain does endorse nausea no episodes of emesis no fevers chills rashes exposures recent tick bites or other symptoms. - Related Data Allergies/Adverse Reactions: paroxetine HCl [From Paxil] Allergy (Intermediate, Verified 12/18/17 18:52) sumatriptan [From Imitrex] Adverse Reaction (Unknown, Verified 12/18/17 18:52) sumatriptan succinate [From Imitrex] Adverse Reaction (Unknown, Verified 18:52) Past Medical History - General Information source: Patient - Social History Chew tobacco use (# tins/day): No Frequency of alcohol use: Rare Drug Abuse: None - Past Medical History Cardiac Medical History: Denies: Hx Coronary Artery Disease, Hx Heart Attack, Hx Hypertension Pulmonary Medical History: Reports: Hx Bronchitis Denies: Hx Asthma, Hx COPD, Hx Pneumonia Neurological Medical History: Reports: Hx Migraine. Denies: Hx Cerebrovascular Accident, Hx Seizures Renal/ Medical History: Reports: Hx Ovarian Cysts. Denies: Hx Peritoneal Dialysis Musculoskeltal Medical History: Reports Hx Arthritis - bilateral hips and knees Skin Medical History: Denies Hx MRSA Psychiatric Medical History: Reports: Hx Attention Deficit Hyperactivity Disorder, Hx Depression Traumatic Medical History: Reports: Hx Fractures Past Surgical History: Reports: Hx Bowel Surgery - hemmorhoids, Hx Gynecologic Surgery - Mirena IUD, Hx Hysterectomy, Hx Oral Surgery - wisdom, Hx Tubal Ligation. Denies: Hx Pacemaker - Immunizations Immunizations up to date: Yes Hx Diphtheria, Pertussis, Tetanus Vaccination: Yes Review of Systems - Review of Systems -: Yes All other systems reviewed and negative Physical Exam - Vital signs Vitals: Temp Pulse Resp BP Pulse Ox 98.9 F 81 16 119/70 100 12/18/17 18:37 12/18/17 18:37 12/18/17 18:37 12/18/17 18:37 12/18/17 18:37 - General General appearance: Appears well In distress: None - HEENT Head: Normocephalic Eyes: Normal Conjunctiva: Normal Cornea: Normal Extraocular movements intact: Yes Pupils: PERRL Ears: Normal Mucous membranes: Normal - Respiratory Respiratory status: No respiratory distress Chest status: Nontender Breath sounds: Normal Chest palpation: Normal - Cardiovascular Rhythm: Regular Heart sounds: Normal auscultation Murmur: No - Abdominal Inspection: Normal Tenderness: Tender - Marked tenderness along the right CVA - Back Back: Other - Tenderness to percussion along the right CVA - Extremities General upper extremity: Normal inspection, Normal ROM General lower extremity: Normal inspection, Normal ROM - Neurological Neuro grossly intact: Yes Cognition: Normal Orientation: AAOx4 [place] Coma Scale Eye Opening: Spontaneous [place] Coma Scale Verbal: Oriented - Psychological Associated symptoms: Normal affect Course - Re-evaluation Re-evalutation: 12/18/17 20:50 This is a 32-year-old female presents for evaluation of recurrent flank pain in the setting have been previous pyelonephritis in addition to renal stones which of all cause problems. She has had several days of intensifying pain on that side for which she is previously been treated. She denies any fevers or chills, diarrhea constipation dysuria. On examination she is got marked tenderness along the right CVA, given that she is got this will proceed with ultrasound as she has had many CT images in the past. We will obtain urinalysis as well. Ultrasound of the abdomen does not demonstrate any obvious cholecystitis no obvious pyelonephritis no obvious hydroureter or hydronephrosis. Patient's pain improved with oral analgesics, her urinalysis is nondiagnostic at this time will defer treatment until this patient is seen in follow-up. Patient was subsequently discharged home with return precautions encouraged follow-up with her urologist. - Vital Signs Vital signs: Temp Pulse Resp BP Pulse Ox 98.9 F 81 16 119/70 100 12/18/17 18:37 12/18/17 18:37 12/18/17 18:37 12/18/17 18:37 12/18/17 18:37 - Laboratory Laboratory results interpreted by me: 12/18/17 19:11 Urine Urobilinogen 2.0 H Doctor's Discharge - Discharge Clinical Impression: Rib pain on right side Condition: Good Disposition: HOME, SELF-CARE Instructions: Anti-Inflammatory Medication ([facility]), Oral Narcotic Medication ([facility] ) Prescriptions: Hydrocodone/Acetaminophen [Valmy 5-325 mg Tablet] 1 tab PO Q8H PRN #16 tablet PRN Reason: For Pain Scale 4-5 Forms: Smoking Cessation Education
[2017-12-18 20:16] LABS: APPEARANCE,URINE CLEAR; BILIRUBIN,URINE NEGATIVE (NEGATIVE); COLOR,URINE YELLOW; GLUCOSE, URINE NEGATIVE (NEGATIVE); KETONES,URINE NEGATIVE (NEGATIVE); LEUKOCYTE ESTERASE,URINE NEGATIVE (NEGATIVE); NITRITE,URINE NEGATIVE (NEGATIVE); PROTEIN,URINE NEGATIVE (NEGATIVE); URINE SPECIFIC GRAVITY 1.019
[2017-12-18] MEDS ORDERED: HYDROCODONE/ACETAMINOPHEN 5-325 MG (6 TAB/ER DISP) PO PRN (20:47)
[2017-12-18 20:50] VITALS: BP 139/84
== END 2017-12-18 20:57 | disposition home or self-care (01) ==
LOC: ER 18:26
DX: R07.81 Pleurodynia (principal); K21.9 Gastro-esophageal reflux disease without esophagitis; R10.9 Unspecified abdominal pain; R11.0 Nausea; Z88.8 Allergy status to other drugs, medicaments and biological substances; Z87.440 Personal history of urinary (tract) infections; Z87.442 Personal history of urinary calculi
CPT/HCPCS: 76705; 81001; 81025; 99284

== ENCOUNTER 2018-02-02 11:49 | Emergency (ER) | payer MEDICAID ==
[2018-02-02] MEDS ORDERED: HYDROCODONE/ACETAMINOPHEN 5-325 MG TABLET PO ONE (12:27)
[2018-02-02] MEDS ORDERED: DIPH/PERTUSS(ACELL)/TETANUS VAC/PF 0.5 ML SYR (>=10YO) IM ONE (12:27)
--- NOTE | 2018-02-02 12:27 | ER Document Report ---
ED General - General Mode of Arrival: Ambulatory Information source: Patient TRAVEL OUTSIDE OF THE [place] IN LAST 30 DAYS: No - General Chief Complaint: Puncture Wound to Foot Stated Complaint: FOOT INJURY Time Seen by Provider: 02/02/18 12:19 Notes: Patient is a 32-year-old female presenting to the emergency department complaining of a puncture wound to the bottom of her right foot onset 3 days ago. Patient states was doing some outside housework, when she stepped on a nail attached to a wooden plank. She states that she was wearing sneakers when she stepped on the nail. Patient states that she was able to pull the nail out and believes it was still intact. Patient also complains of worsening numbness to her 3rd, 4th, and 5th digit. Patient is unsure when her last tetanus shot was. (NEDA PERKINS) - Related Data Allergies/Adverse Reactions: paroxetine HCl [From Paxil] Allergy (Intermediate, Verified 12/18/17 18:52) sumatriptan [From Imitrex] Adverse Reaction (Unknown, Verified 12/18/17 18:52) sumatriptan succinate [From Imitrex] Adverse Reaction (Unknown, Verified 18:52) Past Medical History - General Information source: Patient - Social History Smoking Status: Current Every Day Smoker Chew tobacco use (# tins/day): No Frequency of alcohol use: Rare Drug Abuse: None Family History: Reviewed & Not Pertinent Patient has suicidal ideation: No Patient has homicidal ideation: No Pulmonary Medical History: Reports: Hx Bronchitis Neurological Medical History: Reports: Hx Migraine Renal/ Medical History: Reports: Hx Ovarian Cysts Musculoskeletal Medical History: Reports Hx Arthritis - bilateral hips and knees Psychiatric Medical History: Reports: Hx Attention Deficit Hyperactivity Disorder, Hx Depression Traumatic Medical History: Reports: Hx Fractures Past Surgical History: Reports: Hx Bowel Surgery - hemmorhoids, Hx Gynecologic Surgery - Mirena IUD, Hx Hysterectomy, Hx Oral Surgery - wisdom, Hx Tubal Ligation - Immunizations Immunizations up to date: Yes Hx Diphtheria, Pertussis, Tetanus Vaccination: Yes Review of Systems - Review of Systems Constitutional: No symptoms reported EENT: No symptoms reported Cardiovascular: No symptoms reported Respiratory: No symptoms reported Gastrointestinal: No symptoms reported Genitourinary: No symptoms reported Female Genitourinary: No symptoms reported Musculoskeletal: See HPI Skin: See HPI Hematologic/Lymphatic: No symptoms reported Neurological/Psychological: See HPI, Numbness -: Yes All other systems reviewed and negative Physical Exam - Vital signs Vitals: Temp Pulse Resp BP Pulse Ox 98.4 F 80 14 113/65 99 02/02/18 11:54 02/02/18 11:54 02/02/18 11:54 02/02/18 11:54 02/02/18 11:54 - Notes Notes: GENERAL: Alert, interacts well. No acute distress. HEAD: Normocephalic, atraumatic. EYES: Pupils equal, round, and reactive to light. Extraocular movements intact. ENT: Oral mucosa moist, tongue midline. NECK: Full range of motion. Supple. Trachea midline. LUNGS: No respiratory distress. EXTREMITIES: Moves all 4 extremities spontaneously. Puncture wound to the plantar aspect of the right foot along the arch approximately 3cm distal to the heel with approximately .5 cm of surrounding erythema. Normal capillary refill of right foot, normal dorsalis pedis pulses. No increasing warmth to the toes of right foot. Decreased dorisflexion to the 4th toe of right foot, Normal plantar flexion. Absent sensation to toes 3,4,5 to the right foot according to patient, still able to feel pressure of 1st and 2nd toe. NEUROLOGICAL: Alert and oriented x3. Normal speech. PSYCH: Normal affect, normal mood. SKIN: Warm, dry, normal turgor. (NEDA PERKINS) Course - Re-evaluation Re-evalutation: 02/02/18 13:27 X-ray of the foot is negative for foreign body or subcu emphysema. Patient will be treated with Cipro for antipseudomonal coverage. Discussed potential side effects of Cipro with patient however this is the only oral medication that can be used despite the black box warning. (CONRADO DACOSTA) - Vital Signs Vital signs: Temp Pulse Resp BP Pulse Ox 98.4 F 80 14 113/65 99 02/02/18 11:54 02/02/18 11:54 02/02/18 11:54 02/02/18 11:54 02/02/18 11:54 Discharge - Discharge Clinical Impression: Puncture wound of plantar aspect of right foot with infection Qualifiers: Encounter type: initial encounter Qualified Code(s): S91.331A - Puncture wound without foreign body, right foot, initial encounter Condition: Stable Disposition: HOME, SELF-CARE Additional Instructions: Puncture Wound You have a puncture wound. Because these wounds often penetrate deeply beneath the skin, you must observe them carefully for complications. The wound has been examined for retained foreign material and for damage to tendons and nerves. The area should be rested and elevated for 24 hours. Then you can use the injured part -- if moving it is painfree. Punctures of the hand or foot may require splinting or crutches. The dressing should be changed daily until the wound is healed. You have signs of infection. You must take the ciprofloxacin as directed until it is gone. There are several side effects to ciprofloxacin that the FDA has placed as a black box warning including the potential for tendon rupture and damage to your nerves. This medication is the only one available orally to treat the bacteria that tends to cause this type of infection. The risk of losing your foot to an infection is a larger risk than having her tendon rupture or having nerve damage from this medication. Please follow-up with podiatry as an outpatient for further follow-up regarding this wound. Prescriptions: Ciprofloxacin HCl [Cipro 750 mg Tablet] 750 mg PO BID #14 tablet Forms: Return to Work Referrals: AINSLEY MEZA NP [Primary Care Provider] - Follow up as needed BERNADINE ALBRIGHT DPM [ACTIVE STAFF] - Follow up in 3-5 days Scribe Attestation: 02/02/18 13:47 I personally performed the services described in the documentation, reviewed and edited the documentation which was dictated to the scribe in my presence, and it accurately records my words and actions. (CONRADO DACOSTA)
[2018-02-02] MEDS ORDERED: CIPROFLOXACIN HCL 750 MG TABLET PO ONE (12:56)
--- NOTE | 2018-02-02 13:12 | RADIOLOGY REPORT (SQ) ---
EXAM DESCRIPTION: FOOT RIGHT COMPLETE COMPLETED DATE/TIME: 02/02/2018 12:56 pm REASON FOR STUDY: puncture wound COMPARISON: None. NUMBER OF VIEWS: Three views. TECHNIQUE: AP, lateral and oblique radiographic images acquired of the right foot. LIMITATIONS: None. FINDINGS: MINERALIZATION: Normal. BONES: No acute fracture or dislocation. No worrisome bone lesions. JOINTS: No effusions. SOFT TISSUES: No soft tissue swelling. No foreign body. OTHER: No other significant finding. IMPRESSION: 1. NEGATIVE STUDY OF THE RIGHT FOOT. TECHNICAL DOCUMENTATION: JOB ID: [id number] [employer]- All Rights Reserved Reading location - IP/workstation name: [email or web address]
[2018-02-02 13:51] VITALS: BP 117/77
== END 2018-02-02 13:35 | disposition home or self-care (01) ==
LOC: ER 11:49
DX: S91.331A Puncture wound without foreign body, right foot, initial encounter (principal); R20.0 Anesthesia of skin; W45.0XXA Nail entering through skin, initial encounter; F17.200 Nicotine dependence, unspecified, uncomplicated
CPT/HCPCS: 99283; 73630; 90715; J3490

== ENCOUNTER 2018-03-14 23:07 | Emergency (ER) | payer MEDICAID ==
[2018-03-15] MEDS ORDERED: SERTRALINE HCL 50 MG TABLET PO ONE (00:17)
[2018-03-15] MEDS ORDERED: ZOLPIDEM TARTRATE 5 MG TABLET PO ONE (00:17)
[2018-03-15] MEDS ORDERED: NICOTINE 21 MG/24 HR PATCH.TD24 TD ONE (00:18)
[2018-03-15 00:50] LABS: ABSOLUTE BASOPHILS # (AUTO) 0.1 10^3/uL (0.0-0.2); ABSOLUTE EOSINOPHILS # (AUTO) 0.5 10^3/uL (0.0-0.6); ABSOLUTE LYMPHOCYTES (AUTO) 1.8 10^3/uL (0.5-4.7); ABSOLUTE MONOCYTES (AUTO) 0.6 10^3/uL (0.1-1.4); ABSOLUTE NEUT (AUTO) 8.4 10^3/uL (1.7-8.2); BASOPHILS % (AUTO) 0.6 % (0-2); EOSINOPHILS % (AUTO) 4.2 % (0-6); HEMATOCRIT 39.8 % (36.0-47.0); HEMOGLOBIN 13.5 g/dL (12.0-15.5); LYMPHOCYTES % (AUTO) 15.6 % (13-45); MEAN CORPUSCULAR HEMOGLOBIN 32.2 pg (27.0-33.4); MEAN CORPUSCULAR VOLUME 95 fl (80-97); MONOCYTES % (AUTO) 5.3 % (3-13); PLATELET COUNT 214 10^3/uL (150-450); RED CELL DISTRIBUTION WIDTH 12.8 % (11.5-14.0); SEGMENTED NEUTROPHILS % (AUTO) 74.3 % (42-78); TOTAL CELLS COUNTED % (AUTO) 100 %; WHITE BLOOD COUNT 11.3 10^3/uL (4.0-10.5)
--- NOTE | 2018-03-15 00:58 | ER Document Report ---
ED General - General TRAVEL OUTSIDE OF THE [place] IN LAST 30 DAYS: No <KELLE MONAE - Last Filed: 03/15/18 01:37> <BELKYS MURPHY - Last Filed: 03/15/18 08:37> <DIMITRI JANSEN - Last Filed: 03/15/18 09:39> - General Chief Complaint: Psych Problem Stated Complaint: PSYCH PROBLEM Time Seen by Provider: 03/14/18 23:49 Notes: Patient is a 32-year-old female presents with complaint of being brought in on voluntary command paperwork. Found to commitment paperwork says that the patient is a substance abuser. Said that she also has bipolar and has not been taking her medications. They say that she made a threat to kill herself by driving her car off a bridge. Patient says that none of this is true. She says that the only drugs that she ever does is marijuana. She says this was several weeks ago. She says that these accusations are occurring because her ex -boyfriend is angry that she will not go back with him. She says that the ex- boyfriend is also manipulate her family and saying all the stuff as well. Patient says the only medication she is on her Zoloft and Ambien. She says that she has been taking these and has not missed any dosages. She has no other complaints at this time. (KELLE MONAE) - Related Data Allergies/Adverse Reactions: paroxetine HCl [From Paxil] Allergy (Intermediate, Verified 12/18/17 18:52) sumatriptan [From Imitrex] Adverse Reaction (Unknown, Verified 12/18/17 18:52) sumatriptan succinate [From Imitrex] Adverse Reaction (Unknown, Verified 18:52) Past Medical History - Social History Smoking Status: Current Every Day Smoker Chew tobacco use (# tins/day): No Frequency of alcohol use: None Drug Abuse: Marijuana Family History: Reviewed & Not Pertinent Patient has suicidal ideation: No Patient has homicidal ideation: No - Past Medical History Cardiac Medical History: Denies: Hx Coronary Artery Disease, Hx Heart Attack, Hx Hypertension Pulmonary Medical History: Reports: Hx Bronchitis Denies: Hx Asthma, Hx COPD, Hx Pneumonia Neurological Medical History: Reports: Hx Migraine. Denies: Hx Cerebrovascular Accident, Hx Seizures Renal/ Medical History: Reports: Hx Ovarian Cysts. Denies: Hx Peritoneal Dialysis Musculoskeletal Medical History: Reports Hx Arthritis - bilateral hips and knees Skin Medical History: Denies Hx MRSA Psychiatric Medical History: Reports: Hx Attention Deficit Hyperactivity Disorder, Hx Depression Traumatic Medical History: Reports: Hx Fractures Past Surgical History: Reports: Hx Bowel Surgery - hemmorhoids, Hx Gynecologic Surgery - Mirena IUD, Hx Hysterectomy, Hx Oral Surgery - wisdom, Hx Tubal Ligation. Denies: Hx Pacemaker - Immunizations Immunizations up to date: Yes Hx Diphtheria, Pertussis, Tetanus Vaccination: Yes <KELLE MONAE - Last Filed: 03/15/18 01:37> Review of Systems <KELLE MONAE - Last Filed: 03/15/18 01:37> <BELKYS MURPHY - Last Filed: 03/15/18 08:37> <DIMITRI JANSEN - Last Filed: 03/15/18 09:39> - Review of Systems Notes: My Normal Review Basic REVIEW OF SYSTEMS: CONSTITUTIONAL : Denies fever, chills, or sweats. Denies recent illness. ECARDIOVASCULAR: Denies chest pain. RESPIRATORY: Denies cough, cold, or chest congestion. Denies shortness of breath, difficulty breathing, or wheezing. GASTROINTESTINAL: Denies abdominal pain. Denies nausea, vomiting, or diarrhea. MUSCULOSKELETAL: Denies neck or back pain or joint pain or swelling. SKIN: Denies rash or skin lesions. NEUROLOGICAL: Denies altered mental status or loss of consciousness. Denies headache. Denies weakness or paralysis or loss of use of either side. Denies problems with gait or speech. Denies sensory or motor loss. PSYCHIATRIC: Denies anxiety or stress or depression. ALL OTHER SYSTEMS REVIEWED AND NEGATIVE. (KELLE MONAE) Physical Exam <KELLE MONAE - Last Filed: 03/15/18 01:37> <BELKYS MURPHY - Last Filed: 03/15/18 08:37> <DIMITRI JANSEN - Last Filed: 03/15/18 09:39> - Vital signs Vitals: Temp Pulse Resp BP Pulse Ox 97.8 F 103 H 18 120/86 H 97 03/14/18 23:07 03/14/18 23:07 03/14/18 23:07 03/14/18 23:07 03/14/18 23:07 - Notes Notes: General Appearance: Well nourished, alert, cooperative, no acute distress, no obvious discomfort. Vitals: reviewed, See vital signs table. Head: no swelling or tenderness to the head Eyes: PERRL, EOMI, Conjuctiva clear Mouth: No decreasd moisture Lungs: No wheezing, No rales, No rhonci, No accessory muscle use, good air exchange bilaterally. Heart: Normal rate, Regular rythm, No murmur, no rub Extremities: good pulses in all extremities, no swelling or tenderness in the extremities, no edema. Skin: warm, dry, appropriate color, no rash Neuro: speech clear, oriented x 3, normal affect, responds appropriately to questions. Psychiatric: Normal affect. Not aggressive on exam. Not emotionally upset at this time. (KELLE MONAE) Course - Laboratory Result Diagrams: 03/15/18 00:33 03/15/18 00:33 <KELLE MONAE - Last Filed: 03/15/18 01:37> - Laboratory Result Diagrams: 03/15/18 00:33 03/15/18 00:33 <BELKYS MURPHY - Last Filed: 03/15/18 08:37> - Laboratory Result Diagrams: 03/15/18 00:33 03/15/18 00:33 <DIMITRI JANSEN - Last Filed: 03/15/18 09:39> - Vital Signs Vital signs: Temp Pulse Resp BP Pulse Ox 98.1 F 75 18 188/66 H 100 03/15/18 06:14 03/15/18 06:14 03/15/18 06:14 03/15/18 06:14 03/15/18 06:14 - Laboratory Laboratory results interpreted by me: 03/15/18 03/15/18 03/15/18 00:33 00:33 00:33 WBC 11.3 H Absolute Neutrophils 8.4 H Urine Blood SMALL H Urine Nitrite POSITIVE H Salicylates < 1.0 L Acetaminophen < 10 L - EKG Interpretation by Me Additional EKG results interpreted by me: 03/15/18 00:58 EKGs reviewed and interpreted by me. EKG shows sinus rhythm with a rate of [address] segment elevation or depression. No ischemic T wave inversions. WA interval, QRS duration, QTc intervals are within normal range. No old EKG available for comparison. (KELLE MONAE) Discharge <KELLE MONAE - Last Filed: 03/15/18 01:37> <JEFFREYBELKYS - Last Filed: 03/15/18 08:37> <DIMITRI JANSEN - Last Filed: 03/15/18 09:39> - Discharge Clinical Impression: Substance abuse Depression Qualifiers: Depression Type: other depression Qualified Code(s): F32.89 - Other specified depressive episodes Condition: Stable Disposition: HOME, SELF-CARE Additional Instructions: You have been evaluated both medical and behavioral health teams and been deemed appropriate for discharge. You are recommended to continue with your outpatient mental health services in addition to obtaining substance abuse services. You have been provided a local resource list for area providers in addition to contact information for integrated family services, mobile crisis. COCAINE ABUSE: Cocaine causes many dangerous medical problems. Problems can occur even with "usual" amounts. Cocaine affects judgement, creating a sense of invulnerability. Cocaine users often make bad decisions that seem "great" at the time. Most cocaine users eventually will be hurt by bad job performance, damaged personal relations, crime, and unsafe sexual practices. Toxic effects of cocaine can include seizures, hallucinations, delusions, high blood pressure, heart damage, or sudden . There's always the risk of a "bad batch." But heart attacks, brain hemorrhages, or cardiac arrest can occur unpredictably even with "normal" use. Injection of cocaine is risky for abscesses, endocarditis (heart infection) , pneumonia, and AIDS. Withdrawal from cocaine often causes anxiety and drug cravings. Some users become paranoid and psychotic. Many treatment programs are available, but you must make the decision to quit. Medication can be prescribed to control the symptoms of cocaine toxicity (beta blockers or benzodiazepines). Withdrawal symptoms may require tranquilizers. FOLLOW-UP CARE: If you experience worsening or a significant change in your symptoms, notify the physician immediately or return to the Emergency Department at any time for re-evaluation. Forms: Return to Work Referrals: AINSLEY MEZA NP [Primary Care Provider] - Follow up as needed [facility] [Outside] - Follow up as needed [facility] [Outside] - Follow up in 3-5 days
[2018-03-15 01:10] LABS: APPEARANCE,URINE SLIGHTLY-CLOUDY; BILIRUBIN,URINE NEGATIVE (NEGATIVE); COLOR,URINE YELLOW; GLUCOSE, URINE NEGATIVE (NEGATIVE); KETONES,URINE NEGATIVE (NEGATIVE); LEUKOCYTE ESTERASE,URINE NEGATIVE (NEGATIVE); NITRITE,URINE POSITIVE (NEGATIVE); PROTEIN,URINE NEGATIVE (NEGATIVE); URINE SPECIFIC GRAVITY 1.025; UROBILINOGEN,URINE NEGATIVE mg/dL (<2.0)
[2018-03-15 01:14] LABS: ALANINE AMINOTRANSFERASE 18 U/L (9-52); ALBUMIN 4.4 g/dL (3.5-5.0); ALKALINE PHOSPHATASE 53 U/L (38-126); ANION GAP 12 (5-19); ASPARTATE AMINO TRANSFERASE 19 U/L (14-36); BILIRUBIN,DIRECT 0.2 mg/dL (0.0-0.4); BILIRUBIN,TOTAL 0.3 mg/dL (0.2-1.3); BLOOD UREA NITROGEN 15 mg/dL (7-20); CARBON DIOXIDE 27 mmol/L (22-30); CHLORIDE 105 mmol/L (98-107); GLUCOSE 81 mg/dL (75-110); POTASSIUM 3.8 mmol/L (3.6-5.0); SODIUM 144.3 mmol/L (137-145); TOTAL PROTEIN 7.4 g/dL (6.3-8.2)
[2018-03-15 01:16] LABS: ACETAMINOPHEN < 10 ug/mL (10-30); ALCOHOL < 10 mg/dL (NONE DETECTED); SALICYLATE < 1.0 mg/dL (2.0-20.0)
[2018-03-15 01:21] LABS: URINE AMPHETAMINES SCREEN NEGATIVE; URINE BARBITURATES SCREEN NEGATIVE; URINE BENZODIAZEPINES SCREEN NEGATIVE; URINE COCAINE SCREEN UNCONFIRMED POSITIVE; URINE MARIJUANA (THC) SCREEN UNCONFIRMED POSITIVE; URINE METHADONE SCREEN NEGATIVE; URINE PHENCYCLIDINE SCREEN NEGATIVE
--- NOTE | 2018-03-15 08:17 | EKG REPORT ---
SEVERITY:- NORMAL ECG - SINUS RHYTHM : Confirmed by: Serena Phillips MD 15-Mar-2018 08:15:52
--- NOTE | 2018-03-15 09:38 | ER Document Report ---
Doctor's Note Notes: 03/15/18 09:37 As the rounding physician this AM, I assessed the patient's labs, vitals, and records. No concerning findings this morning. Patient denies any acute complaints. Patient is cleared for disposition by psychiatry. PHYSICAL EXAMINATION: GENERAL: Well-appearing, well-nourished and in no acute distress. HEAD: Atraumatic, normocephalic. EYES: Pupils equal round extraocular movements intact, conjunctiva are normal. ENT: Nares patent NECK: Normal range of motion LUNGS: No respiratory distress Musculoskeletal: Normal range of motion NEUROLOGICAL: Normal speech, normal gait. PSYCH: Normal mood, normal affect. SKIN: Warm, Dry, normal turgor, no rashes or lesions noted. Patient cleared for discharge by psychology team.
[2018-03-15 10:09] VITALS: BP 136/82
== END 2018-03-15 10:11 | disposition home or self-care (01) ==
LOC: ER 23:07
DX: F32.9 Major depressive disorder, single episode, unspecified (principal); F12.10 Cannabis abuse, uncomplicated; F17.200 Nicotine dependence, unspecified, uncomplicated; Z79.899 Other long term (current) drug therapy; Z88.8 Allergy status to other drugs, medicaments and biological substances
CPT/HCPCS: 93005; 99284; 36415; 80307 ×4; 85025; 81025; 80053; 81001; 93010; J3490 ×3

== ENCOUNTER 2018-04-05 10:22 | Emergency (ER) | payer MEDICAID, OTHER ==
[2018-04-05] MEDS ORDERED: NORMAL SALINE 1000 ML 1,000 ML IV ONE (10:31)
--- NOTE | 2018-04-05 10:31 | ER Document Report ---
ED Medical Screen (RME) - General Chief Complaint: Urinary Problem Stated Complaint: BACK PAIN/URINATION PAIN Time Seen by Provider: 04/05/18 10:26 Notes: Patient is a 32-year-old female with recurrent UTIs that presents to the emergency department for chief complaint of right flank pain, dysuria and hematuria. Patient was seen by her PCP, who performed a UA yesterday, that was nitrite positive, was started on Bactrim, and Pyridium. Patient states her symptoms worsen, and is having persistent flank pain and hematuria so she came to the ED today. ROS: Other than noted above, the 12 point review of systems was reviewed with the patient and were negative, all pertinent findings are included in the HPI. PHYSICAL EXAMINATION: Vital signs reviewed. GENERAL: Patient appears uncomfortable, but no acute respiratory distress HEAD: Atraumatic, normocephalic. EYES: Pupils equal round extraocular movements intact, conjunctiva are normal. ENT: Nares patent NECK: Normal range of motion CV: Heart regular rate and rhythm LUNGS: No respiratory distress Musculoskeletal: Normal range of motion NEUROLOGICAL: Normal speech PSYCH: Normal mood, normal affect. MDM: Patient seen and examined for rapid initial assessment. Vital signs reviewed. A comprehensive ED assessment and evaluation of the patient, analysis of test results and completion of the medical decision making process will be conducted by additional ED providers. *Note is created using voice recognition software and may contain spelling, syntax or grammatical errors. TRAVEL OUTSIDE OF THE [place] IN LAST 30 DAYS: No - Related Data Allergies/Adverse Reactions: paroxetine HCl [From Paxil] Allergy (Intermediate, Verified 12/18/17 18:52) sumatriptan [From Imitrex] Adverse Reaction (Unknown, Verified 12/18/17 18:52) sumatriptan succinate [From Imitrex] Adverse Reaction (Unknown, Verified 18:52) Past Medical History - Social History Chew tobacco use (# tins/day): No Frequency of alcohol use: Rare Drug Abuse: None - Past Medical History Cardiac Medical History: Denies: Hx Coronary Artery Disease, Hx Heart Attack, Hx Hypertension Pulmonary Medical History: Reports: Hx Bronchitis Denies: Hx Asthma, Hx COPD, Hx Pneumonia Neurological Medical History: Reports: Hx Migraine. Denies: Hx Cerebrovascular Accident, Hx Seizures Renal/ Medical History: Reports: Hx Ovarian Cysts. Denies: Hx Peritoneal Dialysis Musculoskeltal Medical History: Reports Hx Arthritis - bilateral hips and knees Skin Medical History: Denies Hx MRSA Psychiatric Medical History: Reports: Hx Attention Deficit Hyperactivity Disorder, Hx Depression Traumatic Medical History: Reports: Hx Fractures Past Surgical History: Reports: Hx Bowel Surgery - hemmorhoids, Hx Gynecologic Surgery - Mirena IUD, Hx Hysterectomy, Hx Oral Surgery - wisdom, Hx Tubal Ligation. Denies: Hx Pacemaker - Immunizations Immunizations up to date: Yes Hx Diphtheria, Pertussis, Tetanus Vaccination: Yes Physical Exam - Vital signs Vitals: Temp Pulse Resp BP Pulse Ox 98.3 F 107 H 18 120/80 100 04/05/18 10:27 04/05/18 10:27 04/05/18 10:27 04/05/18 10:27 04/05/18 10:27 Course - Vital Signs Vital signs: Temp Pulse Resp BP Pulse Ox 98.3 F 107 H 18 120/80 100 04/05/18 10:27 04/05/18 10:27 04/05/18 10:27 04/05/18 10:27 04/05/18 10:27 Doctor's Discharge - Discharge Referrals: AINSLEY MEZA NP [Primary Care Provider] - Follow up as needed
[2018-04-05] MEDS ORDERED: CEFTRIAXONE INJ 1000 MG VIAL IV ONE (10:32)
[2018-04-05] MEDS ORDERED: KETOROLAC TROMETHAMINE INJ/PF 30 MG/1 ML SDV IV ONE (10:32)
[2018-04-05] MEDS ORDERED: ONDANSETRON HCL INJ/PF 4 MG/2 ML SDV IV ONE (10:32)
[2018-04-05 11:07] LABS: ABSOLUTE BASOPHILS # (AUTO) 0.1 10^3/uL (0.0-0.2); ABSOLUTE EOSINOPHILS # (AUTO) 0.7 10^3/uL (0.0-0.6); ABSOLUTE LYMPHOCYTES (AUTO) 1.3 10^3/uL (0.5-4.7); ABSOLUTE MONOCYTES (AUTO) 0.6 10^3/uL (0.1-1.4); ABSOLUTE NEUT (AUTO) 3.5 10^3/uL (1.7-8.2); HEMATOCRIT 40.1 % (36.0-47.0); HEMOGLOBIN 13.8 g/dL (12.0-15.5); LYMPHOCYTES % (AUTO) 21.2 % (13-45); MEAN CORPUSCULAR HEMOGLOBIN 32.9 pg (27.0-33.4); MEAN CORPUSCULAR HGB CONC 34.5 g/dL (32.0-36.0); MEAN CORPUSCULAR VOLUME 95 fl (80-97); MONOCYTES % (AUTO) 8.9 % (3-13); PLATELET COUNT 230 10^3/uL (150-450); RED CELL DISTRIBUTION WIDTH 13.3 % (11.5-14.0); SEGMENTED NEUTROPHILS % (AUTO) 56.9 % (42-78); TOTAL CELLS COUNTED % (AUTO) 100 %; WHITE BLOOD COUNT 6.2 10^3/uL (4.0-10.5)
--- NOTE | 2018-04-05 11:12 | RADIOLOGY REPORT (SQ) ---
EXAM DESCRIPTION: CT LTD RENAL STONE PROTOCOL ON COMPLETED DATE/TIME: 04/05/2018 10:59 am REASON FOR STUDY: right flank pain, hematuria COMPARISON: August 2017 TECHNIQUE: CT scan of the abdomen and pelvis performed without intravenous or oral contrast. Images reviewed with lung, soft tissue, and bone windows. Reconstructed coronal and sagittal MPR images revi ewed. All images stored on PACS. All CT scanners at this facility use dose modulation, iterative reconstruction, and/or weight based d osing when appropriate to reduce radiation dose to as low as reasonably achievable (ALARA). [facility]: Dose Right [facility]: CareDose [facility]: Dose Right [facility]: Teradose 4D [facility]: Smart Massive Health RADIATION DOSE: CT Rad equipment meets quality standard of care and radiation dose reduction techniq ues were employed. CTDIvol: 2.3 mGy. DLP: 126 mGy-cm.mGy. LIMITATIONS: There is a relative paucity of mesenteric and retroperitoneal fat making delineation of abdominal and pelvic structures somewhat difficult. FINDINGS: LOWER CHEST: No significant findings. No nodules or infiltrates. NON-CONTRASTED LIVER, SPLEEN, ADRENALS: Evaluation limited by lack of IV contrast. No identified sign ificant masses. PANCREAS: No masses. No peripancreatic inflammatory changes. GALLBLADDER: No identified stones by CT criteria. No inflammatory changes to suggest cholecystitis. RIGHT KIDNEY AND URETER: Ectopic position of the right kidney is again identified in the right lower quadrant. No suspicious masses. Assessment limited by lack of IV contrast. No significant calcifi cations. No hydronephrosis or hydroureter. LEFT KIDNEY AND URETER: No suspicious masses. Assessment limited by lack of IV contrast. No signifi cant calcifications. No hydronephrosis or hydroureter. AORTA AND RETROPERITONEUM: No aneurysm. No retroperitoneal masses or adenopathy. BOWEL AND PERITONEAL CAVITY: No obvious masses or inflammatory changes. No free fluid. APPENDIX: Not identified PELVIS, BLADDER, AND ABDOMINAL WALL:No abnormal masses. No free fluid. The bladder is not well evalu ated due to its non distended state. BONES: No significant findings. OTHER: No other significant finding. IMPRESSION: NO SIGNIFICANT OR ACUTE PROCESS IN THE ABDOMEN OR PELVIS. No significant interval santos e from the previous study. COMMENT: Quality ID # [id number]: Final reports with documentation of one or more dose reduction techniques (e.g., Automated exposure control, adjustment of the mA and/or kV according to patient size, use of iterative reconstruction technique) TECHNICAL DOCUMENTATION: JOB ID: [id number] [employer]- All Rights Reserved Reading location - IP/workstation name: [facility]
[2018-04-05 11:25] LABS: APPEARANCE,URINE SLIGHTLY-CLOUDY; BILIRUBIN,URINE NEGATIVE (NEGATIVE); COLOR,URINE YELLOW; GLUCOSE, URINE NEGATIVE (NEGATIVE); KETONES,URINE NEGATIVE (NEGATIVE); LEUKOCYTE ESTERASE,URINE TRACE (NEGATIVE); NITRITE,URINE NEGATIVE (NEGATIVE); PROTEIN,URINE NEGATIVE (NEGATIVE); URINE SPECIFIC GRAVITY 1.021; UROBILINOGEN,URINE NEGATIVE mg/dL (<2.0)
[2018-04-05 11:28] LABS: ALANINE AMINOTRANSFERASE 25 U/L (9-52); ALBUMIN 4.8 g/dL (3.5-5.0); ALKALINE PHOSPHATASE 56 U/L (38-126); ANION GAP 9 (5-19); ASPARTATE AMINO TRANSFERASE 25 U/L (14-36); BILIRUBIN,DIRECT 0.2 mg/dL (0.0-0.4); BILIRUBIN,TOTAL 0.3 mg/dL (0.2-1.3); BLOOD UREA NITROGEN 19 mg/dL (7-20); CALCIUM 10.9 mg/dL (8.4-10.2); CARBON DIOXIDE 31 mmol/L (22-30); CHLORIDE 104 mmol/L (98-107); GLUCOSE 86 mg/dL (75-110); LIPASE 179.3 U/L (23-300); SODIUM 144.2 mmol/L (137-145)
--- NOTE | 2018-04-05 13:14 | ER Document Report ---
ED General - General Chief Complaint: Urinary Problem Stated Complaint: BACK PAIN/URINATION PAIN Time Seen by Provider: 04/05/18 10:26 Mode of Arrival: Ambulatory Information source: Patient, [facility] Records TRAVEL OUTSIDE OF THE [place] IN LAST 30 DAYS: No - HPI Patient complains to provider of: back pain Onset: Other - 32 yo that presents at the request of her primary for flank pain. she had a UTI diagnosed and was started on bactrim for it. She has had persistent pain thereafter which prompted her to see her PCP today who referred her for cat scan in the ED> She is well appearing on examination, denies fevers , chills diarrhea, constipation or other symptoms. - Related Data Allergies/Adverse Reactions: paroxetine HCl [From Paxil] Allergy (Intermediate, Verified 12/18/17 18:52) tramadol Allergy (Mild, Verified 04/05/18 13:34) sumatriptan [From Imitrex] Adverse Reaction (Unknown, Verified 12/18/17 18:52) sumatriptan succinate [From Imitrex] Adverse Reaction (Unknown, Verified 18:52) Past Medical History - General Information source: Patient - Social History Smoking Status: Current Every Day Smoker Chew tobacco use (# tins/day): No Frequency of alcohol use: Rare Drug Abuse: None Family History: Reviewed & Not Pertinent Patient has suicidal ideation: No Patient has homicidal ideation: No - Past Medical History Cardiac Medical History: Denies: Hx Coronary Artery Disease, Hx Heart Attack, Hx Hypertension Pulmonary Medical History: Reports: Hx Bronchitis Denies: Hx Asthma, Hx COPD, Hx Pneumonia Neurological Medical History: Reports: Hx Migraine. Denies: Hx Cerebrovascular Accident, Hx Seizures Renal/ Medical History: Reports: Hx Ovarian Cysts. Denies: Hx Peritoneal Dialysis Musculoskeletal Medical History: Reports Hx Arthritis - bilateral hips and knees Skin Medical History: Denies Hx MRSA Psychiatric Medical History: Reports: Hx Attention Deficit Hyperactivity Disorder, Hx Depression Traumatic Medical History: Reports: Hx Fractures Past Surgical History: Reports: Hx Bowel Surgery - hemmorhoids, Hx Gynecologic Surgery - Mirena IUD, Hx Hysterectomy, Hx Oral Surgery - wisdom, Hx Tubal Ligation. Denies: Hx Pacemaker - Immunizations Immunizations up to date: Yes Hx Diphtheria, Pertussis, Tetanus Vaccination: Yes Review of Systems - Review of Systems -: Yes All other systems reviewed and negative Physical Exam - Vital signs Vitals: Temp Pulse Resp BP Pulse Ox 98.3 F 107 H 18 120/80 100 04/05/18 10:27 04/05/18 10:27 04/05/18 10:27 04/05/18 10:27 04/05/18 10:27 Interpretation: Normal - General General appearance: Appears well, Alert - HEENT Head: Normocephalic, Atraumatic Eyes: Normal Pupils: PERRL - Respiratory Respiratory status: No respiratory distress Chest status: Nontender Breath sounds: Normal Chest palpation: Normal - Cardiovascular Rhythm: Regular Heart sounds: Normal auscultation Murmur: No - Abdominal Inspection: Normal Distension: No distension Bowel sounds: Normal Tenderness: Nontender Organomegaly: No organomegaly - Back Back: Normal, Nontender - Extremities General upper extremity: Normal inspection, Nontender, Normal color, Normal ROM , Normal temperature General lower extremity: Normal inspection, Nontender, Normal color, Normal ROM , Normal temperature, Normal weight bearing. No: Sylvia's sign - Neurological Neuro grossly intact: Yes Cognition: Normal Orientation: AAOx4 [place] Coma Scale Eye Opening: Spontaneous Omid Coma Scale Verbal: Oriented Omid Coma Scale Motor: Obeys Commands Omid Coma Scale Total: 15 Speech: Normal Motor strength normal: LUE, RUE, LLE, RLE Sensory: Normal - Psychological Associated symptoms: Normal affect, Normal mood - Skin Skin Temperature: Warm Skin Moisture: Dry Skin Color: Normal Course - Re-evaluation Re-evalutation: this is a woman with chronic pyleonephritis. She has been seen by her primary and is scheduled to see them tomorrow. She has obvious pyuria and through triage had a ct of the abdomen and pelvis. Her abdomen is benign and no obvious pathology was identified. I will give her a brief course of oral narcotic medication. She will see her primary tomorrow, do not believe this represnts other abdominal pathology such as but not limited to AAA, appendicitis, cholecystitis , bowel obstruction. - Vital Signs Vital signs: Temp Pulse Resp BP Pulse Ox 98.4 F 77 16 110/78 100 04/05/18 13:37 04/05/18 13:37 04/05/18 13:37 04/05/18 13:37 04/05/18 13:37 - Laboratory Result Diagrams: 04/05/18 10:49 04/05/18 10:49 Laboratory results interpreted by me: 04/05/18 04/05/18 04/05/18 10:49 10:49 10:49 Eosinophils % 12.0 H Absolute Eosinophils 0.7 H Carbon Dioxide 31 H Calcium 10.9 H Ur Leukocyte Esterase TRACE H Discharge - Discharge Clinical Impression: Pyelonephritis, Tobacco abuse Abdominal pain Qualifiers: Abdominal location: unspecified location Qualified Code(s): R10.9 - Unspecified abdominal pain Condition: Good Disposition: HOME, SELF-CARE Instructions: Oral Narcotic Medication ([facility]), Stop Smoking ([facility]) Additional Instructions: You were seen today in the emergency department for your infection in your urine. He had an evaluation including a CAT scan, you also had a test of your urine. It looks like you have likely had a infection in your kidney. Current plan will be for you to follow-up tomorrow with your primary physician. Your infection and your kidney and bladder should respond well to the antibiotic you are on. You have been given pain medicine to try and help with this. Continue to take the Pyridium. He did not have a kidney stone, you do not have other issues. Return for worsening fevers or chills vomiting or inability to eat or drink. Prescriptions: Oxycodone HCl 5 mg PO Q8 PRN #5 capsule PRN Reason: For Pain Scale 3-5 Tramadol HCl [Ultram] 50 mg PO Q8H PRN #15 tablet PRN Reason: Referrals: AINSLEY MEZA NP [Primary Care Provider] - Follow up as needed
[2018-04-05 13:38] VITALS: BP 110/78
== END 2018-04-05 13:38 | disposition home or self-care (01) ==
LOC: ER 10:22
DX: N12 Tubulo-interstitial nephritis, not specified as acute or chronic (principal); R10.9 Unspecified abdominal pain; R39.198 Other difficulties with micturition; F17.200 Nicotine dependence, unspecified, uncomplicated
CPT/HCPCS: 99284; 96375; 96365; 36415; 87086; 83690; 85025; 87088; 80053; 81001; 87186; 76380; J1885; J0696; J2405; J7030

== ENCOUNTER 2018-06-19 18:21 | Emergency (ER) | payer MEDICAID ==
[2018-06-19 18:29] VITALS: BP 118/73
== END 2018-06-19 22:50 | disposition left against medical advice (07) ==
LOC: ER 18:21
DX: Z53.21 Procedure and treatment not carried out due to patient leaving prior to being seen by health care provider (principal); R42 Dizziness and giddiness

== ENCOUNTER 2018-06-20 13:02 | Emergency (ER) | payer SELFPAY ==
[2018-06-20 13:06] VITALS: BP 118/76
[2018-06-20] MEDS ORDERED: KETOROLAC TROMETHAMINE 60 MG/2 ML SDV IM ONE (13:35)
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
== END 2018-06-20 14:58 | disposition home or self-care (01) ==
LOC: ER 13:02
DX: S05.10XA Contusion of eyeball and orbital tissues, unspecified eye, initial encounter (principal); Y04.2XXA Assault by strike against or bumped into by another person, initial encounter
CPT/HCPCS: 99284; 96372; 70450; 70486; 72125; J1885

== ENCOUNTER 2018-10-19 04:33 | Emergency (ER) | payer SELFPAY ==
[2018-10-19 08:09] LABS: ABSOLUTE BASOPHILS # (AUTO) 0.1 10^3/uL (0.0-0.2); ABSOLUTE EOSINOPHILS # (AUTO) 0.1 10^3/uL (0.0-0.6); ABSOLUTE NEUT (AUTO) 6.4 10^3/uL (1.7-8.2); BASOPHILS % (AUTO) 0.8 % (0-2); EOSINOPHILS % (AUTO) 0.6 % (0-6); HEMATOCRIT 38.3 % (36.0-47.0); LYMPHOCYTES % (AUTO) 21.3 % (13-45); MEAN CORPUSCULAR HEMOGLOBIN 32.3 pg (27.0-33.4); MEAN CORPUSCULAR HGB CONC 34.1 g/dL (32.0-36.0); MEAN CORPUSCULAR VOLUME 95 fl (80-97); MONOCYTES % (AUTO) 10.2 % (3-13); PLATELET COUNT 202 10^3/uL (150-450); RED BLOOD COUNT 4.04 10^6/uL (3.72-5.28); RED CELL DISTRIBUTION WIDTH 13.4 % (11.5-14.0); SEGMENTED NEUTROPHILS % (AUTO) 67.1 % (42-78); TOTAL CELLS COUNTED % (AUTO) 100 %; WHITE BLOOD COUNT 9.5 10^3/uL (4.0-10.5)
[2018-10-19 08:19] LABS: ALANINE AMINOTRANSFERASE 16 U/L (9-52); ALBUMIN 4.7 g/dL (3.5-5.0); ALCOHOL < 10 mg/dL (NONE DETECTED); ALKALINE PHOSPHATASE 59 U/L (38-126); ANION GAP 13 (5-19); ASPARTATE AMINO TRANSFERASE 25 U/L (14-36); BILIRUBIN,DIRECT 0.2 mg/dL (0.0-0.4); BILIRUBIN,TOTAL 0.8 mg/dL (0.2-1.3); BLOOD UREA NITROGEN 21 mg/dL (7-20); CALCIUM 10.1 mg/dL (8.4-10.2); CARBON DIOXIDE 24 mmol/L (22-30); CHLORIDE 105 mmol/L (98-107); GLUCOSE 92 mg/dL (75-110); POTASSIUM 3.6 mmol/L (3.6-5.0); SODIUM 141.5 mmol/L (137-145); TOTAL PROTEIN 7.7 g/dL (6.3-8.2)
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
[2018-10-19 10:13] LABS: APPEARANCE,URINE CLOUDY; BILIRUBIN,URINE NEGATIVE (NEGATIVE); COLOR,URINE YELLOW; GLUCOSE, URINE NEGATIVE (NEGATIVE); KETONES,URINE TRACE mg/dL (NEGATIVE); LEUKOCYTE ESTERASE,URINE NEGATIVE (NEGATIVE); NITRITE,URINE POSITIVE (NEGATIVE); PROTEIN,URINE 30 mg/dL (NEGATIVE); URINE SPECIFIC GRAVITY 1.024; UROBILINOGEN,URINE NEGATIVE mg/dL (<2.0)
[2018-10-19] MEDS ORDERED: HYDROCODONE/ACETAMINOPHEN 5-325 MG TABLET PO ONE (10:13)
[2018-10-19 11:55] VITALS: BP 110/74
== END 2018-10-19 11:00 | disposition home or self-care (01) ==
LOC: ER 04:33
DX: S02.2XXA Fracture of nasal bones, initial encounter for closed fracture (principal); S00.11XA Contusion of right eyelid and periocular area, initial encounter; S80.12XA Contusion of left lower leg, initial encounter; S80.11XA Contusion of right lower leg, initial encounter; Y09 Assault by unspecified means; F17.210 Nicotine dependence, cigarettes, uncomplicated; F32.9 Major depressive disorder, single episode, unspecified; Z79.899 Other long term (current) drug therapy; Z88.8 Allergy status to other drugs, medicaments and biological substances; Z88.5 Allergy status to narcotic agent
CPT/HCPCS: 36415; 70486; 80053; 80307; 81001; 85025; 99284

== ENCOUNTER 2019-05-07 05:18 | Emergency (ER) | payer SELFPAY ==
[2019-05-07 05:54] LABS: APPEARANCE,URINE SLIGHTLY-CLOUDY; BILIRUBIN,URINE NEGATIVE (NEGATIVE); COLOR,URINE YELLOW; GLUCOSE, URINE NEGATIVE (NEGATIVE); KETONES,URINE NEGATIVE (NEGATIVE); LEUKOCYTE ESTERASE,URINE LARGE (NEGATIVE); NITRITE,URINE NEGATIVE (NEGATIVE); PROTEIN,URINE NEGATIVE (NEGATIVE); URINE SPECIFIC GRAVITY 1.018; UROBILINOGEN,URINE NEGATIVE mg/dL (<2.0)
[2019-05-07 06:00] LABS: ABSOLUTE BASOPHILS # (AUTO) 0.1 10^3/uL (0.0-0.2); ABSOLUTE EOSINOPHILS # (AUTO) 0.2 10^3/uL (0.0-0.6); ABSOLUTE LYMPHOCYTES (AUTO) 2.3 10^3/uL (0.5-4.7); ABSOLUTE MONOCYTES (AUTO) 0.5 10^3/uL (0.1-1.4); ABSOLUTE NEUT (AUTO) 3.1 10^3/uL (1.7-8.2); HEMOGLOBIN 13.9 g/dL (12.0-15.5); LYMPHOCYTES % (AUTO) 36.7 % (13-45); MEAN CORPUSCULAR HEMOGLOBIN 32.3 pg (27.0-33.4); MEAN CORPUSCULAR HGB CONC 33.9 g/dL (32.0-36.0); MEAN CORPUSCULAR VOLUME 96 fl (80-97); MONOCYTES % (AUTO) 8.8 % (3-13); PLATELET COUNT 198 10^3/uL (150-450); RED CELL DISTRIBUTION WIDTH 13.6 % (11.5-14.0); SEGMENTED NEUTROPHILS % (AUTO) 50.5 % (42-78); TOTAL CELLS COUNTED % (AUTO) 100 %; WHITE BLOOD COUNT 6.2 10^3/uL (4.0-10.5)
[2019-05-07 06:27] LABS: ALBUMIN 4.2 g/dL (3.5-5.0); ALKALINE PHOSPHATASE 47 U/L (38-126); ANION GAP 10 (5-19); ASPARTATE AMINO TRANSFERASE 18 U/L (14-36); BILIRUBIN,DIRECT 0.3 mg/dL (0.0-0.4); BILIRUBIN,TOTAL 0.3 mg/dL (0.2-1.3); BLOOD UREA NITROGEN 18 mg/dL (7-20); CALCIUM 9.7 mg/dL (8.4-10.2); CARBON DIOXIDE 27 mmol/L (22-30); CHLORIDE 103 mmol/L (98-107); GLUCOSE 89 mg/dL (75-110); POTASSIUM 3.7 mmol/L (3.6-5.0); TOTAL PROTEIN 7.3 g/dL (6.3-8.2)
[2019-05-07] MEDS ORDERED: NORMAL SALINE 1000 ML 1,000 ML IV ONE (07:07)
[2019-05-07] MEDS ORDERED: FLUCONAZOLE 100 MG TABLET PO ONE (07:53)
[2019-05-07] MEDS ORDERED: KETOROLAC TROMETHAMINE INJ/PF 30 MG/1 ML SDV IV ONE (07:53)
[2019-05-07] MEDS ORDERED: SULFAMETHOXAZOLE/TRIMETHOPRIM 800-160 MG TABLET PO ONE (07:54)
--- NOTE | 2019-05-07 09:10 | ER Document Report ---
ED General - General Chief Complaint: Flank Pain Stated Complaint: KIDNEY PAIN/URINARY PAIN Time Seen by Provider: 05/07/19 07:05 TRAVEL OUTSIDE OF THE [place] IN LAST 30 DAYS: No - HPI Notes: Patient is a 33-year-old female who presents emergency department for evaluation of bilateral flank pain as well as some dysuria. She states that her flanks have been hurting for about a week, left greater than right. She developed some dysuria over the last 24 to 48 hours. She also states she has some vaginal discharge consistent with a yeast infection. Its itching, red in the area. She states she always gets a yeast infection when she has a urinary tract infection. She had a fever of 102 degrees last night but denies any nausea or vomiting. She is eating and drinking normally. Normal bowel movements. - Related Data Allergies/Adverse Reactions: paroxetine HCl [From Paxil] Allergy (Intermediate, Verified 12/18/17 18:52) tramadol Allergy (Mild, Verified 04/05/18 13:34) sumatriptan [From Imitrex] Adverse Reaction (Unknown, Verified 12/18/17 18:52) sumatriptan succinate [From Imitrex] Adverse Reaction (Unknown, Verified 12/18/17 18:52) Past Medical History - General Information source: Patient - Social History Smoking Status: Current Every Day Smoker Family History: Reviewed & Not Pertinent Patient has suicidal ideation: No Patient has homicidal ideation: No - Past Medical History Cardiac Medical History: Denies: Hx Coronary Artery Disease, Hx Heart Attack, Hx Hypertension Pulmonary Medical History: Reports: Hx Bronchitis Denies: Hx Asthma, Hx COPD, Hx Pneumonia Neurological Medical History: Reports: Hx Migraine. Denies: Hx Cerebrovascular Accident, Hx Seizures Renal/ Medical History: Reports: Hx Ovarian Cysts. Denies: Hx Peritoneal Dialysis Musculoskeletal Medical History: Reports Hx Arthritis - bilateral hips and knees Skin Medical History: Denies Hx MRSA Psychiatric Medical History: Reports: Hx Attention Deficit Hyperactivity Disorder, Hx Depression Traumatic Medical History: Reports: Hx Fractures Past Surgical History: Reports: Hx Bowel Surgery - hemmorhoids, Hx Gynecologic Surgery - Mirena IUD, Hx Hysterectomy, Hx Oral Surgery - wisdom, Hx Tubal Ligation. Denies: Hx Pacemaker - Immunizations Immunizations up to date: Yes Hx Diphtheria, Pertussis, Tetanus Vaccination: Yes Review of Systems - Review of Systems Constitutional: See HPI EENT: No symptoms reported Cardiovascular: No symptoms reported Respiratory: No symptoms reported Gastrointestinal: No symptoms reported Genitourinary: See HPI Female Genitourinary: See HPI Musculoskeletal: No symptoms reported Skin: See HPI Neurological/Psychological: No symptoms reported Physical Exam - Vital signs Vitals: Temp Pulse Resp BP Pulse Ox 98.5 F 85 18 96/59 L 100 05/07/19 05:22 05/07/19 05:22 05/07/19 05:22 05/07/19 05:22 05/07/19 05:22 - Notes Notes: Vital signs reviewed, please refer to chart. Head is normocephalic, atraumatic. Pupils equal round, reactive to light. Neck is supple without meningismus. Heart is regular rate and rhythm. Lungs are clear to auscultation bilaterally. Abdomen is soft, nontender, normoactive bowel sounds throughout. Mild bilateral CVA tenderness. Extremities without cyanosis, clubbing. Posterior calves are nontender. Peripheral pulses are equal. Skin is warm and dry. Patient is awake, alert, neurological exam is nonfocal. Course - Re-evaluation Re-evalutation: 05/07/19 14:04 Patient presents to the emergency department for evaluation. She is evaluated and is found to have white blood cells in her urine. No significant leukocy tosis. Her vital signs are unremarkable. She is given Diflucan as per her request, states she always gets yeast infections with her urinary tract infections. She is treated here for UTI. Her cultures in the past have shown E. coli, sensitive to Bactrim. Otherwise, she is medicated here with Toradol. She is to follow-up with primary care, take all the antibiotics as prescribed, return to the ED with worsening or new concerning symptoms of any sort. - Vital Signs Vital signs: Temp Pulse Resp BP Pulse Ox 98.5 F 84 16 115/62 100 05/07/19 09:17 05/07/19 09:17 05/07/19 09:17 05/07/19 09:17 05/07/19 09:17 - Laboratory Result Diagrams: 05/07/19 05:47 05/07/19 05:47 Laboratory results interpreted by me: 05/07/19 05:34 Ur Leukocyte Esterase LARGE H Discharge - Discharge Clinical Impression: UTI (urinary tract infection) Condition: Stable Disposition: HOME, SELF-CARE Instructions: Trimethoprim-Sulfa ([facility]), Urinary Tract Infection ([facility]) Additional Instructions: Take antibiotic as prescribed until gone. Follow-up with primary care this week. Return to the emergency department worsening or new concerning symptoms of any sort. Prescriptions: Sulfamethoxazole/Trimethoprim [Bactrim Ds Tablet] 1 each PO BID #10 tablet
[2019-05-07 09:23] VITALS: BP 115/62
== END 2019-05-07 09:28 | disposition home or self-care (01) ==
LOC: ER 05:18
DX: N39.0 Urinary tract infection, site not specified (principal); N23 Unspecified renal colic; R30.0 Dysuria; N89.8 Other specified noninflammatory disorders of vagina; F17.200 Nicotine dependence, unspecified, uncomplicated
CPT/HCPCS: 99284; 96361; 96374; 36415; 87040; 87086; 83690; 84703; 85025; 81025; 87088; 80053; 81001; 87186; J1885; J7030

== ENCOUNTER 2019-08-06 11:41 | Emergency (ER) | payer SELFPAY ==
[2019-08-06 12:36] LABS: A TYPE INFLUENZA AG NEGATIVE (NEGATIVE); B INFLUENZA AG NEGATIVE (NEGATIVE)
[2019-08-06 12:54] VITALS: BP 129/78
--- NOTE | 2019-08-06 12:55 | RADIOLOGY REPORT (SQ) ---
EXAM DESCRIPTION: CHEST SINGLE VIEW IMAGES COMPLETED DATE/TIME: 08/06/2019 12:46 pm REASON FOR STUDY: cough COMPARISON: 01/12/2014. NUMBER OF VIEWS: One view. TECHNIQUE: Single frontal radiographic view of the chest acquired. LIMITATIONS: None. FINDINGS: LUNGS AND PLEURA: Hyperinflated lungs, potentially related asthma. No pneumothorax. Pote ntial patchy airspace disease in the right base, recommend lateral radiographic correlation. MEDIASTINUM AND HILAR STRUCTURES: No masses. Contour normal. HEART AND VASCULAR STRUCTURES: Heart normal in size. Normal vasculature. BONES: No acute findings. HARDWARE: None in the chest. OTHER: No other significant finding. IMPRESSION: 1. Hyperinflated lungs. Potential asthma/COPD. 2. Concerning for right basilar pneumonia. Lateral chest film correlation recommended. TECHNICAL DOCUMENTATION: JOB ID: [id number] 2010 [employer]- All Rights Reserved Reading location - IP/workstation name: [email or web address]
--- NOTE | 2019-08-06 12:59 | ER Document Report ---
Entered by JENNIFER VIVAR SCRIBE 08/06/19 1205 Acting as scribe for:BART GARCIA MD ED General - General Chief Complaint: Fever Stated Complaint: FEVER,COUGH Information source: Patient Notes: This 42-year-old female who is an every day smoker presents to the emergency department with a chief complaint of a cough for the past three weeks. Patient states that today she has had green sputum. Patient says that she has not been able to sleep due to her cough for the past three nights. She has taken Mucinex with no relief. Patient reports throat pain and wheezing. Patient denies travel in the last 14 days and sick contact. TRAVEL OUTSIDE OF THE [place] IN LAST 30 DAYS: No - Related Data Allergies/Adverse Reactions: paroxetine HCl [From Paxil] Allergy (Intermediate, Verified 08/06/19 11:46) tramadol Allergy (Mild, Verified 08/06/19 11:46) sumatriptan [From Imitrex] Adverse Reaction (Unknown, Verified 08/06/19 11:46) sumatriptan succinate [From Imitrex] Adverse Reaction (Unknown, Verified 08/06/19 11:46) Past Medical History - General Information source: Patient - Social History Smoking Status: Current Every Day Smoker Cigarette use (# per day): Yes Chew tobacco use (# tins/day): No Family History: Reviewed & Not Pertinent Pulmonary Medical History: Reports: Hx Bronchitis Neurological Medical History: Reports: Hx Migraine Renal/ Medical History: Reports: Hx Ovarian Cysts Musculoskeletal Medical History: Reports Hx Arthritis - bilateral hips and knees Psychiatric Medical History: Reports: Hx Attention Deficit Hyperactivity Disorder, Hx Depression Traumatic Medical History: Reports: Hx Fractures Past Surgical History: Reports: Hx Bowel Surgery - hemmorhoids, Hx Gynecologic Surgery - Mirena IUD, Hx Hysterectomy, Hx Oral Surgery - wisdom, Hx Tubal Liga tion - Immunizations Immunizations up to date: Yes Hx Diphtheria, Pertussis, Tetanus Vaccination: Yes Review of Systems - Review of Systems Constitutional: No symptoms reported EENT: See HPI, Throat pain Cardiovascular: No symptoms reported Respiratory: See HPI, Cough, Sputum, Wheezing Gastrointestinal: No symptoms reported Genitourinary: No symptoms reported Female Genitourinary: No symptoms reported Musculoskeletal: No symptoms reported Skin: No symptoms reported Hematologic/Lymphatic: No symptoms reported Neurological/Psychological: No symptoms reported -: Yes All other systems reviewed and negative Physical Exam - Vital signs Vitals: Temp Pulse Resp BP Pulse Ox 98.4 F 105 H 14 114/78 99 08/06/19 11:41 08/06/19 11:41 08/06/19 11:41 08/06/19 11:41 08/06/19 11:41 - Notes Notes: Physical Exam: General: Alert, appears well. HEENT: Normocephalic. Atraumatic. PERRL. Extraocular movements intact. Oropharynx clear. Shotty anterior cervical lymphadenopathy. Small white patches on tonsils bilaterally. Neck: Supple. Non-tender. Respiratory: No respiratory distress. Clear and equal breath sounds bilaterally. No wheezing. Cardiovascular: Regular rate and rhythm. Abdominal: Normal Inspection. Non-tender. No distension. Normal Bowel Sounds. Back: No gross abnormalities. Extremities: Moves all four extremities. Upper extremities: Normal inspection. Normal ROM. Lower extremities: Normal inspection. No edema. Normal ROM. Neurological: Normal cognition. AAOx4. Normal speech. Psychological: Normal affect. Normal Mood. Skin: Warm. Dry. Normal color. 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 Chest x-ray has not been read by radiologist as yet but unofficially my read shows that there is an infiltrate in the right base consistent with pneumonia. Plan is to discharge patient on antibiotics and cough medicine and follow-up with her primary care physician. - Vital Signs Vital signs: Temp Pulse Resp BP Pulse Ox 98.4 F 105 H 14 114/78 99 08/06/19 11:41 08/06/19 11:41 08/06/19 11:41 08/06/19 11:41 08/06/19 11:41 - Laboratory Laboratory results interpreted by me: Laboratory results shows negative strep screen and negative influenza a or B. Discharge - Discharge Clinical Impression: Right lower lobe pneumonia, Cough Condition: Stable Disposition: HOME, SELF-CARE Instructions: Acetaminophen Additional Instructions: Pneumonia Your examination indicates that you have pneumonia. This is an infection of the lung tissue, usually caused by bacteria or a virus. Symptoms include cough, fever, shaking chills, chest pain, shortness of breath, and coughing up bloody sputum. Treatment for bacterial pneumonia includes rest, antibiotics for 10 to 14 days, increasing your clear liquid intake, a cool mist humidifier at your bedside, and fever medication. Often, a repeat chest X-ray is performed in a few weeks--even if you feel better--to ascertain whether the infection has completely resolved and no underlying lung problem is present. You should call the physician if you develop persistent vomiting, high fever that does not respond to fever medication, increasing shortness of breath, confusion, or lethargy. Also, failure to improve within two to three days is an indication for re-examination. Prescriptions: Amoxicillin/Potassium Clav [Augmentin 875-125 Tablet] 1 tab PO BID #20 tab Dextromethorphan HBr [Cough Relief] 30 mg PO BID 7 Days #150 liquid Prednisone [Deltasone 20 mg Tablet] 20 mg PO BID #10 tablet I personally performed the services described in the documentation, reviewed and edited the documentation which was dictated to the scribe in my presence, and it accurately records my words and actions.
== END 2019-08-06 13:05 | disposition home or self-care (01) ==
LOC: ER 11:41
DX: J18.9 Pneumonia, unspecified organism (principal); R05 Cough; R50.9 Fever, unspecified; Z79.899 Other long term (current) drug therapy; Z88.8 Allergy status to other drugs, medicaments and biological substances; F17.210 Nicotine dependence, cigarettes, uncomplicated
CPT/HCPCS: 71045; 87070; 87804; 87880; 99283

== ENCOUNTER 2019-10-08 14:02 | Emergency (ER) | payer SELFPAY ==
[2019-10-08 14:07] VITALS: BP 107/59
[2019-10-08] MEDS ORDERED: ACETAMINOPHEN 325 MG TABLET PO ONE (14:38)
--- NOTE | 2019-10-08 14:38 | ER Document Report ---
ED Medical Screen (RME) - General Chief Complaint: Abdominal Pain Stated Complaint: LOWER ABDOMINAL PAIN Time Seen by Provider: 10/08/19 14:36 Mode of Arrival: Ambulatory Information source: Patient Notes: 33-year-old female presented to ED for left pelvic pain that goes to the groin and around to the back today. She pain started yesterday. States she has had left kidney problems in the past. She states it feels almost like when she has had ruptured ovarian cyst before. She has had a partial is hysterectomy but she still has her ovaries. She is also had a hemorrhoidectomy and a polyp bilateral tubal ligation. She states she smokes 1/4 pack a day and drinks occasionally about once a month. She is alert oriented respirations regular nonlabored speaking in full sentences we will get blood urine and a non-OB ultrasound at this time. I have greeted and performed a rapid initial assessment of this patient. A comprehensive ED assessment and evaluation of the patient, analysis of test results and completion of medical decision making process will be conducted by an additional ED providers. TRAVEL OUTSIDE OF THE [place] IN LAST 30 DAYS: No - Related Data Allergies/Adverse Reactions: paroxetine HCl [From Paxil] Allergy (Intermediate, Verified 08/06/19 11:46) tramadol Allergy (Mild, Verified 08/06/19 11:46) sumatriptan [From Imitrex] Adverse Reaction (Unknown, Verified 08/06/19 11:46) sumatriptan succinate [From Imitrex] Adverse Reaction (Unknown, Verified 08/06/19 11:46) Past Medical History - Past Medical History Cardiac Medical History: Denies: Hx Coronary Artery Disease, Hx Heart Attack, Hx Hypertension Pulmonary Medical History: Reports: Hx Bronchitis Denies: Hx Asthma, Hx COPD, Hx Pneumonia Neurological Medical History: Reports: Hx Migraine. Denies: Hx Cerebrovascular Accident, Hx Seizures Renal/ Medical History: Reports: Hx Ovarian Cysts. Denies: Hx Peritoneal Dialysis Musculoskeltal Medical History: Reports Hx Arthritis - bilateral hips and knees Skin Medical History: Denies Hx MRSA Psychiatric Medical History: Reports: Hx Attention Deficit Hyperactivity Disorder, Hx Depression Traumatic Medical History: Reports: Hx Fractures Past Surgical History: Reports: Hx Bowel Surgery - hemmorhoids, Hx Gynecologic Surgery - Mirena IUD, Hx Hysterectomy, Hx Oral Surgery - wisdom, Hx Tubal Ligation. Denies: Hx Pacemaker - Immunizations Immunizations up to date: Yes Hx Diphtheria, Pertussis, Tetanus Vaccination: Yes Physical Exam - Vital signs Vitals: Temp Pulse Resp BP Pulse Ox 98.0 F 109 H 18 107/59 L 99 10/08/19 14:06 10/08/19 14:06 10/08/19 14:06 10/08/19 14:06 10/08/19 14:06 Course - Vital Signs Vital signs: Temp Pulse Resp BP Pulse Ox 98.0 F 109 H 18 107/59 L 99 10/08/19 14:31 10/08/19 14:06 10/08/19 14:06 10/08/19 14:06 10/08/19 14:06
[2019-10-08 15:12] LABS: ABSOLUTE BASOPHILS # (AUTO) 0.1 10^3/uL (0.0-0.2); ABSOLUTE EOSINOPHILS # (AUTO) 0.1 10^3/uL (0.0-0.6); ABSOLUTE LYMPHOCYTES (AUTO) 1.7 10^3/uL (0.5-4.7); ABSOLUTE MONOCYTES (AUTO) 0.8 10^3/uL (0.1-1.4); BASOPHILS % (AUTO) 0.8 % (0-2); EOSINOPHILS % (AUTO) 1.6 % (0-6); HEMATOCRIT 40.1 % (36.0-47.0); HEMOGLOBIN 13.6 g/dL (12.0-15.5); LYMPHOCYTES % (AUTO) 19.5 % (13-45); MEAN CORPUSCULAR HEMOGLOBIN 32.3 pg (27.0-33.4); MEAN CORPUSCULAR HGB CONC 33.9 g/dL (32.0-36.0); MEAN CORPUSCULAR VOLUME 95 fl (80-97); MONOCYTES % (AUTO) 9.5 % (3-13); PLATELET COUNT 235 10^3/uL (150-450); RED BLOOD COUNT 4.21 10^6/uL (3.72-5.28); RED CELL DISTRIBUTION WIDTH 13.8 % (11.5-14.0); SEGMENTED NEUTROPHILS % (AUTO) 68.6 % (42-78); TOTAL CELLS COUNTED % (AUTO) 100 %; WHITE BLOOD COUNT 8.7 10^3/uL (4.0-10.5)
[2019-10-08 15:19] LABS: APPEARANCE,URINE SLIGHTLY-CLOUDY; BILIRUBIN,URINE NEGATIVE (NEGATIVE); COLOR,URINE YELLOW; GLUCOSE, URINE NEGATIVE (NEGATIVE); KETONES,URINE NEGATIVE (NEGATIVE); LEUKOCYTE ESTERASE,URINE NEGATIVE (NEGATIVE); NITRITE,URINE NEGATIVE (NEGATIVE); PROTEIN,URINE NEGATIVE (NEGATIVE); URINE SPECIFIC GRAVITY 1.024
[2019-10-08 15:26] LABS: ALBUMIN 4.5 g/dL (3.5-5.0); ALKALINE PHOSPHATASE 48 U/L (38-126); ASPARTATE AMINO TRANSFERASE 19 U/L (14-36); BILIRUBIN,TOTAL 0.6 mg/dL (0.2-1.3); BLOOD UREA NITROGEN 19 mg/dL (7-20); CALCIUM 10.3 mg/dL (8.4-10.2); CARBON DIOXIDE 32 mmol/L (22-30); CHLORIDE 103 mmol/L (98-107); POTASSIUM 4.5 mmol/L (3.6-5.0); TOTAL PROTEIN 7.6 g/dL (6.3-8.2)
[2019-10-08 15:28] LABS: GLUCOSE 67 mg/dL (75-110)
[2019-10-08 15:33] LABS: ANION GAP 4 (5-19)
--- NOTE | 2019-10-08 16:32 | RADIOLOGY REPORT (SQ) ---
EXAM DESCRIPTION: U/S NON OB PEL TV W/DOPPLER IMAGES COMPLETED DATE/TIME: 10/08/2019 4:23 pm REASON FOR STUDY: Left pelvic pain partial hysterectomy COMPARISON: 09/19/2017 TECHNIQUE: Dynamic and static grayscale images acquired of the pelvis via transvaginal approach and recorded on PACS. Additional selected color Doppler and spectral images recorded. LIMITATIONS: None. FINDINGS: UTERUS: Prior hysterectomy. RIGHT OVARY AND DOPPLER: Normal size. No worrisome masses. Normal arterial vascular flow without evid ence for torsion. LEFT OVARY AND DOPPLER: A 2.1 x 2.1 x 1.7 cm cyst. Normal arterial vascular flow without evidence f or torsion. FREE FLUID: None noted. OTHER: No other significant finding. MEASUREMENTS: UTERUS: Prior hysterectomy. RIGHT OVARY: 3.4 x 2.1 x 1.8 cm LEFT OVARY: 2.7 x 2.8 x 2.2 cm IMPRESSION: 1. Prior hysterectomy. 2. Left ovarian cyst. TECHNICAL DOCUMENTATION: JOB ID: [id number] 2010 [employer]- All Rights Reserved Rev-09/09 Reading location - IP/workstation name: [email or web address]
[2019-10-08] MEDS ORDERED: OXYCODONE-ACETAMINOPHEN 5-325 MG TABLET PO ONE (16:55)
--- NOTE | 2019-10-08 17:02 | ER Document Report ---
ED GI/ <VIKTORIA DELEON - Last Filed: 10/08/19 17:11> - General Mode of Arrival: Ambulatory Information source: Patient, [facility] Records TRAVEL OUTSIDE OF THE [place] IN LAST 30 DAYS: No <BELKIS CARIAS - Last Filed: 10/08/19 17:20> - General Chief Complaint: Abdominal Pain Stated Complaint: LOWER ABDOMINAL PAIN Time Seen by Provider: 10/08/19 14:36 Primary Care Provider: [facility] [Provider Group] - Follow up as needed - Related Data Allergies/Adverse Reactions: paroxetine HCl [From Paxil] Allergy (Intermediate, Verified 08/06/19 11:46) tramadol Allergy (Mild, Verified 08/06/19 11:46) sumatriptan [From Imitrex] Adverse Reaction (Unknown, Verified 08/06/19 11:46) sumatriptan succinate [From Imitrex] Adverse Reaction (Unknown, Verified 08/06/19 11:46) Past Medical History - General Information source: Patient - Social History Smoking Status: Current Every Day Smoker Family History: Reviewed & Not Pertinent Patient has homicidal ideation: No - Past Medical History Cardiac Medical History: Denies: Hx Coronary Artery Disease, Hx Heart Attack, Hx Hypertension Pulmonary Medical History: Reports: Hx Bronchitis Denies: Hx Asthma, Hx COPD, Hx Pneumonia Neurological Medical History: Reports: Hx Migraine. Denies: Hx Cerebrovascular Accident, Hx Seizures Renal/ Medical History: Reports: Hx Ovarian Cysts. Denies: Hx Peritoneal Dialysis Musculoskeletal Medical History: Reports Hx Arthritis - bilateral hips and knees Skin Medical History: Denies Hx MRSA Psychiatric Medical History: Reports: Hx Attention Deficit Hyperactivity Disorder, Hx Depression Traumatic Medical History: Reports: Hx Fractures Past Surgical History: Reports: Hx Bowel Surgery - hemmorhoids, Hx Gynecologic Surgery - Mirena IUD, Hx Hysterectomy, Hx Oral Surgery - wisdom, Hx Tubal Ligation. Denies: Hx Pacemaker - Immunizations Immunizations up to date: Yes Hx Diphtheria, Pertussis, Tetanus Vaccination: Yes <BELKIS CARIAS - Last Filed: 10/08/19 17:20> Physical Exam - Vital signs Vitals: Temp Pulse Resp BP Pulse Ox 98.0 F 109 H 18 107/59 L 99 10/08/19 14:06 10/08/19 14:06 10/08/19 14:06 10/08/19 14:06 10/08/19 14:06 Course - Laboratory Result Diagrams: 10/08/19 14:50 10/08/19 14:50 <VIKTORIA DELEON - Last Filed: 10/08/19 17:11> - Laboratory Result Diagrams: 10/08/19 14:50 10/08/19 14:50 <BELKIS CARIAS - Last Filed: 10/08/19 17:20> - Vital Signs Vital signs: Temp Pulse Resp BP Pulse Ox 98.0 F 109 H 18 107/59 L 99 10/08/19 14:31 10/08/19 14:06 10/08/19 14:06 10/08/19 14:06 10/08/19 14:06 - Laboratory Laboratory results interpreted by me: 10/08/19 10/08/19 14:50 14:50 Carbon Dioxide 32 H Anion Gap 4 L Glucose 67 L Calcium 10.3 H Urine Urobilinogen 2.0 H Discharge <VIKTORIA DELEON - Last Filed: 10/08/19 17:11> <BELKIS CARIAS - Last Filed: 10/08/19 17:20> - Discharge Clinical Impression: Ovarian cyst Qualifiers: Laterality: left Qualified Code(s): N83.202 - Unspecified ovarian cyst, left side Condition: Stable Disposition: HOME, SELF-CARE Additional Instructions: Ovarian Cyst Your examination shows the presence of an ovarian cyst. This is a ball of fluid attached to the ovary. Ovarian cysts in women of child-bearing age are usually innocent. However, the cyst may cause pain when it grows or bursts. An innocent ovarian cyst will usually go away by itself. When the cyst becomes painful, you should rest. Pain medication may be req uired. Some women find a hot water bottle soothing. The pain usually resolves within one or two days. After menopause, an ovarian cyst may mean a tumor, and requires more aggressive evaluation -- usually surgery is recommended to remove or biopsy the cyst. A very large cyst requires evaluation at any age. Most cysts (even the innocent ones) require follow-up examination. Call the doctor or return at any time if the pain increases significantly, if you become faint, or if you experience vaginal bleeding. Take pain medication as prescribed. Drink plenty of fluids and take MiraLAX daily to avoid constipation. Follow-up with your primary care provider or with [facility] if not improving. RETURN TO THE EMERGENCY ROOM IF ANY NEW OR WORSENING SYMPTOMS. Prescriptions: Oxycodone HCl/Acetaminophen [Percocet 5-325 mg Tablet] 1 tab PO ASDIR PRN #12 tablet PRN Reason: Referrals: [facility] [Provider Group] - Follow up as needed
--- NOTE | 2019-10-08 17:11 | ER Document Report ---
Doctor's Note Notes: 10/08/19 17:09 This is a 33-year-old female seen primarily by Dr. Crum and found to have evidence of an ovarian cyst causing severe lower abdominal pain. I was asked to assume follow-up care this patient. She appears stable for discharge this time and I am going to write her 12 tablets of Percocet and she will follow-up as previously outlined in note by Dr. Crum.
== END 2019-10-08 17:10 | disposition home or self-care (01) ==
LOC: ER 14:02
DX: N83.202 Unspecified ovarian cyst, left side (principal); R10.30 Lower abdominal pain, unspecified; Z88.8 Allergy status to other drugs, medicaments and biological substances; F17.200 Nicotine dependence, unspecified, uncomplicated
CPT/HCPCS: 36415; 76830; 80053; 81001; 85025; 87086; 93976; 99284

== ENCOUNTER 2019-11-08 11:05 | Emergency (ER) | payer SELFPAY ==
[2019-11-08 11:24] VITALS: BP 127/72
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
[2019-11-08 12:12] LABS: ABSOLUTE EOSINOPHILS # (AUTO) 0.1 10^3/uL (0.0-0.6); ABSOLUTE MONOCYTES (AUTO) 0.6 10^3/uL (0.1-1.4); ABSOLUTE NEUT (AUTO) 5.6 10^3/uL (1.7-8.2); BASOPHILS % (AUTO) 0.5 % (0-2); HEMATOCRIT 39.3 % (36.0-47.0); HEMOGLOBIN 13.3 g/dL (12.0-15.5); MEAN CORPUSCULAR HEMOGLOBIN 32.3 pg (27.0-33.4); MEAN CORPUSCULAR HGB CONC 33.8 g/dL (32.0-36.0); MEAN CORPUSCULAR VOLUME 95 fl (80-97); MONOCYTES % (AUTO) 7.4 % (3-13); PLATELET COUNT 226 10^3/uL (150-450); RED BLOOD COUNT 4.12 10^6/uL (3.72-5.28); RED CELL DISTRIBUTION WIDTH 13.3 % (11.5-14.0); SEGMENTED NEUTROPHILS % (AUTO) 67.1 % (42-78); TOTAL CELLS COUNTED % (AUTO) 100 %; WHITE BLOOD COUNT 8.3 10^3/uL (4.0-10.5)
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
[2019-11-08 12:25] LABS: APPEARANCE,URINE SLIGHTLY-CLOUDY; BILIRUBIN,URINE NEGATIVE (NEGATIVE); COLOR,URINE YELLOW; GLUCOSE, URINE NEGATIVE (NEGATIVE); KETONES,URINE NEGATIVE (NEGATIVE); LEUKOCYTE ESTERASE,URINE MODERATE (NEGATIVE); NITRITE,URINE NEGATIVE (NEGATIVE); PROTEIN,URINE NEGATIVE (NEGATIVE); URINE SPECIFIC GRAVITY 1.021; UROBILINOGEN,URINE NEGATIVE mg/dL (<2.0)
[2019-11-08 12:36] LABS: URINE AMPHETAMINES SCREEN NEGATIVE; URINE BARBITURATES SCREEN NEGATIVE; URINE BENZODIAZEPINES SCREEN NEGATIVE; URINE METHADONE SCREEN NEGATIVE; URINE PHENCYCLIDINE SCREEN NEGATIVE
[2019-11-08 12:37] LABS: ALBUMIN 4.5 g/dL (3.5-5.0); ALKALINE PHOSPHATASE 47 U/L (38-126); ANION GAP 5 (5-19); ASPARTATE AMINO TRANSFERASE 21 U/L (14-36); BILIRUBIN,TOTAL 0.5 mg/dL (0.2-1.3); BLOOD UREA NITROGEN 12 mg/dL (7-20); CALCIUM 9.9 mg/dL (8.4-10.2); CARBON DIOXIDE 29 mmol/L (22-30); CHLORIDE 105 mmol/L (98-107); GLUCOSE 81 mg/dL (75-110); POTASSIUM 4.5 mmol/L (3.6-5.0); TOTAL PROTEIN 7.6 g/dL (6.3-8.2)
[2019-11-08 12:39] LABS: URINE COCAINE SCREEN UNCONFIRMED POSITIVE; URINE MARIJUANA (THC) SCREEN UNCONFIRMED POSITIVE
== END 2019-11-08 14:40 | disposition left against medical advice (07) ==
LOC: ER 11:05
DX: S89.91XA Unspecified injury of right lower leg, initial encounter (principal); M79.604 Pain in right leg; X58.XXXA Exposure to other specified factors, initial encounter; F17.200 Nicotine dependence, unspecified, uncomplicated; Z88.8 Allergy status to other drugs, medicaments and biological substances; Z88.6 Allergy status to analgesic agent; Z53.20 Procedure and treatment not carried out because of patient's decision for unspecified reasons
CPT/HCPCS: 36415; 80053; 80307; 81001; 84703; 85025; 99281

== ENCOUNTER 2020-03-03 09:19 | Emergency (ER) | payer SELFPAY ==
[2020-03-03] MEDS ORDERED: DEXAMETHASONE SOD PHOSPHATE INJ 4 MG/1 ML VIAL IM ONE (10:15)
[2020-03-03] MEDS ORDERED: KETOROLAC TROMETHAMINE 60 MG/2 ML SDV IM ONE (10:15)
[2020-03-03] MEDS ORDERED: CYCLOBENZAPRINE HCL 10 MG TABLET PO ONE (10:16)
[2020-03-03] MEDS ORDERED: OXYCODONE-ACETAMINOPHEN 5-325 MG TABLET PO ONE (10:16)
[2020-03-03] MEDS ORDERED: LIDOCAINE 5% (700 MG) TRANSDERMAL ADH..PATCH TP ONE (10:17)
--- NOTE | 2020-03-03 10:17 | ER Document Report ---
HPI - HPI Time Seen by Provider: 03/03/20 10:09 Notes: 34-year-old female patient presenting to the emergency department with complaints of low back pain. Patient reports pain ongoing for the last 3 weeks. Worse over the last few days. She denies any specific injury. She states she has had issues like this before. She denies any loss of control of bowel or bladder. Denies any urinary incontinence or saddle anesthesia. Patient has otherwise felt well and has not had a fever. She states the pain is worse with movement. - ROS Systems Reviewed and Negative: Yes All other systems reviewed and negative - REPRODUCTIVE Reproductive: DENIES: : - MUSCULOSKELETAL Musculoskeletal: REPORTS: Back Pain Past Medical History - General Information source: Patient - Social History Smoking Status: Never Smoker Frequency of alcohol use: None Drug Abuse: None Family History: Reviewed & Not Pertinent Pulmonary Medical History: Reports: Hx Bronchitis Neurological Medical History: Reports: Hx Migraine. Denies: Hx Cerebrovascular Accident Renal/ Medical History: Reports: Hx Ovarian Cysts. Denies: Hx Peritoneal Dialysis Musculoskeletal Medical History: Reports Hx Arthritis - bilateral hips and knees Skin Medical History: Denies Hx MRSA Psychiatric Medical History: Reports: Hx Attention Deficit Hyperactivity Disorder, Hx Depression Traumatic Medical History: Reports: Hx Fractures Past Surgical History: Reports: Hx Bowel Surgery - hemmorhoids, Hx Gynecologic Surgery - Mirena IUD, Hx Hysterectomy, Hx Oral Surgery - wisdom, Hx Tubal Ligation. Denies: Hx Pacemaker - Immunizations Immunizations up to date: Yes Hx Diphtheria, Pertussis, Tetanus Vaccination: Yes Vertical Provider Document - CONSTITUTIONAL Notes: PHYSICAL EXAMINATION: GENERAL: Well-appearing, well-nourished and in no acute distress. HEAD: Atraumatic, normocephalic. EYES: Pupils equal round extraocular movements intact, conjunctiva are normal. ENT: Nares patent NECK: Normal range of motion LUNGS: No respiratory distress Musculoskeletal: Normal range of motion, tenderness to the bilateral lumbar paraspinous region, no vertebral tenderness, step-off or deformity. No CVA tenderness. NEUROLOGICAL: Normal speech, normal gait. PSYCH: Normal mood, normal affect. SKIN: Warm, Dry, normal turgor, no rashes or lesions noted. - INFECTION CONTROL TRAVEL OUTSIDE OF THE [place] IN LAST 30 DAYS: No Course - Re-evaluation Re-evalutation: Patient with acute on chronic back pain. No red flag signs to suggest cauda equina. Patient medicated in the emergency department, she states she feels much improved. Lumbar spine x-ray as noted below shows no acute findings. Lumbar Spine X-Ray 03/03/20 10:15 IMPRESSION: Sclerosis along the bilateral pars interarticularis at L5, suspect degenerative spondylolysis on the left. Bilateral facet arthropathy at L4-5 and L5-S1 - Vital Signs Vital signs: Temp Pulse Resp BP Pulse Ox 98.2 F 81 20 106/64 100 03/03/20 09:28 03/03/20 09:28 03/03/20 09:28 03/03/20 09:28 03/03/20 09:28 Discharge - Discharge Clinical Impression: Low back pain Qualifiers: Chronicity: chronic Back pain laterality: bilateral Sciatica presence: with sciatica Sciatica laterality: bilateral sciatica Qualified Code(s): M54.42 - Lumbago with sciatica, left side Condition: Stable Disposition: HOME, SELF-CARE Additional Instructions: You have been seen in the Emergency Department (ED) today for back pain. Your workup and exam have not shown any acute abnormalities and you are likely suffering from muscle strain or possible problems with your discs, but there is no treatment that will fix your symptoms at this time. Please take the medications that have been prescribed as directed. You should also purchase a local lidocaine cream such as "aspercreme with lidocaine" and use per bottle instructions to the affected area. Apply heat to the area as often as you are able. Continue to keep active and avoid prolonged periods of bed rest. Please follow up with your doctor as soon as possible regarding today's ED visit and your back pain. Return to the ED for worsening back pain, fever, weakness or numbness of either leg, or if you develop either (1) an inability to urinate or have bowel movements, or (2) loss of your ability to control your bathroom functions (if you start having "accidents"), or if you develop other new symptoms that concern you.concern you. Prescriptions: Ketorolac Tromethamine [Toradol 10 mg Tablet] 10 mg PO Q6HP PRN #20 tablet PRN Reason: For Pain Cyclobenzaprine HCl [Flexeril 10 mg Tablet] 10 mg PO TIDP PRN #15 tab PRN Reason: Lidocaine [Lidoderm 5% (700 mg) Transdermal Patch] 1 patch TP DAILY #30 adh..patch Forms: Return to Work Referrals: LOCALMD,NO [Primary Care Provider] - Follow up as needed
--- NOTE | 2020-03-03 11:38 | RADIOLOGY REPORT (SQ) ---
EXAM DESCRIPTION: L SPINE WHOLE IMAGES COMPLETED DATE/TIME: 03/03/2020 11:21 am REASON FOR STUDY: low back pain COMPARISON: Two-view lumbar spine 03/26/2015 NUMBER OF VIEWS: Five views including obliques. TECHNIQUE: AP, lateral, oblique, and sacral radiographic images acquired of the lumbar spine. LIMITATIONS: None. FINDINGS: MINERALIZATION: Normal. SEGMENTATION: Normal. No transitional anatomy. ALIGNMENT: Normal. VERTEBRAE: Maintained height. No fracture or worrisome bone lesion. DISCS: Preserved height. No significant osteophytes or end plate irregularity. POSTERIOR ELEMENTS: Sclerosis along the bilateral pars interarticularis at L5, suspect degenerative s pondylolysis on the left . Advanced bilateral facet arthropathy at L4-5 and L5-S1. HARDWARE: None in the spine. PARASPINAL SOFT TISSUES: Normal. PELVIS: Intact as visualized. No fractures or worrisome bone lesions. SI joints intact. OTHER: No other significant finding. IMPRESSION: Sclerosis along the bilateral pars interarticularis at L5, suspect degenerative spondylo lysis on the left. Bilateral facet arthropathy at L4-5 and L5-S1 TECHNICAL DOCUMENTATION: JOB ID: [id number] [employer] All Rights Reserved Reading location - IP/workstation name: [facility]
[2020-03-03 12:06] VITALS: BP 123/83
== END 2020-03-03 12:05 | disposition home or self-care (01) ==
LOC: ER 09:19
DX: M47.26 Other spondylosis with radiculopathy, lumbar region (principal); M47.817 Spondylosis without myelopathy or radiculopathy, lumbosacral region; M54.42 Lumbago with sciatica, left side; M54.41 Lumbago with sciatica, right side; G89.29 Other chronic pain
CPT/HCPCS: 99284; 96372; 72110; J1100; J1885